=== PATIENT | male | born 1990 | race Caucasian/White ===

== ENCOUNTER 2024-10-30 15:16 | Inpatient (IN) | payer BC, SELFPAY ==
[2024-10-30] VITALS (8 sets, daily range): BP systolic 143–182; BP diastolic 96–112; PULSE 60–81; RESP 13–19; TEMP 36.4–36.7; O2SAT 95–99; BMI 22.8; BMI 21.8
--- NOTE | 2024-10-30 15:10 | ECG_ITS ---
APPROVED REPORT Exam: Resting ECG HR:63 bpm ECG Measurements Heart Rate 63 AXES ME 143 P 61 QRSd 110 QRS 32 QT 428 T 48 QTc 435 Conclusion Sinus rhythm Incomplete right bundle branch block Electronically signed by : LUIS ALFREDO CASEY, 10/30/2024 20:40:22
[2024-10-30] MEDS: ONDANSETRON 4MG/2ML VIAL 4 MG IV ×3 (15:30→21:49)
[2024-10-30] MEDS: KETOROLAC 30MG/ML VIAL 30 MG IV (15:31)
--- NOTE | 2024-10-30 15:31 | CT_ITS ---
PROCEDURE INFORMATION: Exam: CT Abdomen And Pelvis With Contrast Exam date and time: 10/30/2024 4:01 PM Age: 34 years old Clinical indication: Other: Luq abd pain / vomiting TECHNIQUE: Imaging protocol: Computed tomography of the abdomen and pelvis with contrast. Radiation optimization: All CT scans at this facility use at least one of these dose optimization techniques: automated exposure control; mA and/or kV adjustment per patient size (includes targeted exams where dose is matched to clinical indication); or iterative reconstruction. Contrast material: ISOVUE; Contrast volume: 75 ml; Contrast route: IV; COMPARISON: No relevant prior studies available. FINDINGS: Liver: Normal. No mass. Gallbladder and biliary ducts: Normal gallbladder Pancreas: There is diffuse peripancreatic inflammatory stranding and fluid, consistent with moderate acute pancreatitis. . Spleen: Normal. No splenomegaly. Adrenal glands: Normal. No mass. Kidneys and ureters: Normal. No hydronephrosis. Stomach and bowel: Secondary inflammation of the stomach and duodenum and colon by the pancreatitis.. Appendix: No evidence of appendicitis. Intraperitoneal space: Mild amount of free fluid in the abdomen and pelvis Vasculature: Unremarkable. No abdominal aortic aneurysm. Lymph nodes: Unremarkable. No enlarged lymph nodes. Urinary bladder: Unremarkable as visualized. Reproductive: Unremarkable as visualized. Bones/joints: Unremarkable. No acute fracture. Soft tissues: Unremarkable. IMPRESSION: 1. There is diffuse peripancreatic inflammatory stranding and fluid, consistent with moderate acute pancreatitis. . 2. Secondary inflammation of the stomach and duodenum and colon by the pancreatitis..
--- NOTE | 2024-10-30 15:31 | XR_ITS ---
PROCEDURE INFORMATION: Exam: XR Chest Exam date and time: 10/30/2024 4:07 PM Age: 34 years old Clinical indication: Pain; Other: Central cp TECHNIQUE: Imaging protocol: Radiologic exam of the chest. Views: 1 view. COMPARISON: CT ABDOMEN PELVIS W CON 10/30/2024 4:01 PM FINDINGS: Lungs: Unremarkable. No consolidation. Pleural spaces: Unremarkable. No pleural effusion. No pneumothorax. Heart/Mediastinum: Unremarkable. No cardiomegaly. Bones/joints: Unremarkable. IMPRESSION: No acute findings.
[2024-10-30 15:39] LABS: Basophils # 0.1 K/mm3 (0-0.2); Basophils % 0.6 % (0.1-2.0); Eosinophils # 0.4 K/mm3 (0.0-0.4); Eosinophils % 1.6 % (0.1-12.0); Hematocrit 45.8 % (42.0-52.0); Hemoglobin 15.6 g/dL (14.1-18.0); Lymphocytes # 3.8 K/mm3 (0.7-4.5); Lymphocytes % 16.7 % (10-50); Mean Corpuscular HGB Conc 34.1 g/dL (31.8-35.4); Mean Corpuscular Volume 91.1 fl (80-94); Mean Platelet Volume 9.4 fl (7.4-10.4); Monocytes # 1.2 K/mm3 (0.1-1.0); Monocytes % 5.2 % (1.7-9.3); Neutrophils # 17.2 K/mm3 (1.8-7.8); Neutrophils % 75.3 % (37.0-80.0); Platelet Count 278 K/mm3 (142-424); Red Blood Count 5.03 M/mm3 (4.60-6.20); Red Cell Distribution Width 12.1 % (11.5-17.5); White Blood Count 22.8 K/mm3 (4.8-10.8)
[2024-10-30 15:40] LABS: Albumin Level 5.3 g/dl (3.5-5.0); Chloride 103 mmol/L (98-107)
[2024-10-30 15:41] LABS: Potassium 3.6 mmoL/L (3.5-5.1); Sodium 138 mmol/L (136-145)
[2024-10-30] MEDS: 0.9 % SODIUM CHLORIDE 1000ML 1,000 ML 999 ML IV ×3 (15:42→17:09)
[2024-10-30] MEDS: HYDROMORPHONE 2MG/ML SYRINGE 1 MG IV (15:42)
[2024-10-30 15:43] LABS: Alanine Aminotransferase 43 U/L (12-78); Alkaline Phosphatase 66 U/L (38-126); Anion Gap 12.6 mEq/L (5-15); Aspartate Amino Transferase 59 U/L (17-59); Bilirubin,Total 1.1 mg/dl (0.2-1.3); Blood Urea Nitrogen 8 mg/dl (9-20); Carbon Dioxide 26 mmol/L (22.0-30.0); Creatinine Clearance Estimated 143 mL/min (50-200); Estimated Glomerular Filt Rate 129 ml/min (>60); GFR (African American) 156 ML/MIN (>60)
[2024-10-30 15:44] LABS: Albumin/Globulin Ratio 1.9 (1.1-1.8); Calcium 9.1 mg/dl (8.4-10.2); Globulin 2.8 g/dL (1.3-3.2); Glucose 191 mg/dl (74-100); Total Protein,Serum 8.1 g/dl (6.3-8.2)
--- NOTE | 2024-10-30 15:44 | HMH.EDGENADL ---
Discharge Plan Disposition Patient Disposition: Admitted Discharge ED Provider: Rajesh Mccoy General Adult HPI <Gricel Valente APRN - Last Filed: 10/30/24 19:53> General Chief complaint: Abdominal Pain Stated complaint: CP Time Seen by Provider: 10/30/24 15:21 Mode of Arrival: Ambulatory Source of Information: Patient Description of Symptoms (Recalled from ER Triage Doc. by RN): pt presents c/o abd pain x2h. pt entire abd (LUQ worse) tender to palpations, guarding and firm to palpation. History of Present Illness HPI narrative: Patient is a 34-year-old male no significant PMHx who presents to the ED for complaints of left upper quadrant abdominal pain that started suddenly, reports it is severe associated with vomiting. Patient states he has never experienced this before. Related Data Allergies Allergy/AdvReac Type Severity Reaction Status Date / Time No Known Allergies Allergy Verified 10/30/24 15:37 PFSH <Gricel Valente APRN - Last Filed: 10/30/24 19:53> PFSH Disclaimer: The information contained in this section may have been updated after the patient was seen, as this information can be updated by other users. Medical History (Updated 10/30/24 @ 18:43 by Neeraj Irwin MD) Murmur History of palpitations Anxiety Family History (Updated 10/30/24 @ 18:11 by Liya Mccormick RN) Other Family history of cancer Family history of myocardial infarction Family history of stroke Social History Smoking Status: Current every day smoker alcohol intake: current current occupational status: employed Travel in the last 8 weeks: None Have you lived/traveled outside [place] in past 30 days?: No Contact w/someone who lives/traveled outside US past 30 days?: No Exposure to someone with infectious disease in past 14 days?: No Do you have a fever (greater than 100.4 F or 38 C)?: No Have you tested positive for COVID-19: No Exposed to someone with COVID-19 in past 14 days?: No Do you have a sore throat?: No Do you have a cough?: No Do you have any weakness?: No Are you experiencing any nausea/vomitting?: Yes Do you have any diarrhea?: No Are you experiencing any unusual bleeding?: No Do you have any muscle aches/pain?: Yes Do you have any abdominal pain?: Yes Are you experiencing loss of taste or smell?: No <Gricel Valente APRN - Last Filed: 10/30/24 19:53> ROS Obtained: Yes Systems reviewed as appropriate & no additional complaints except as documented Physical Exam <Gricel Valente APRN - Last Filed: 10/30/24 19:53> General General appearance: alert and in no apparent distress Head Head exam: atraumatic and normocephalic Eye Eye exam: Present normal appearance and PERRL ENT ENT exam: Present normal exam Neck Neck exam: Present normal inspection Chest Chest inspection: Present normal inspection and symmetric chest wall rise; Absent tenderness Respiratory Respiratory exam: Present normal lung sounds bilaterally Cardiovascular Cardiovascular exam: Present regular rate Abdominal Exam Abdominal exam: Present soft, tenderness (LUQ LLQ abd ) and normal bowel sounds Extremities Exam Extremities exam: Present normal inspection and full ROM Back Exam Back exam: Present normal inspection and full ROM Neurological Exam Neurological exam: Present alert and oriented X3 Psychiatric Psychiatric exam: Present normal affect and normal mood Skin Skin exam: Present warm and dry Medical Decision Making <Gricel Valente APRN - Last Filed: 10/30/24 19:53> Medical Records Screening: Per USPSTF and CDC recommendations, given the prevalence of disease in our region, it is our hospital?s policy to screen for HIV and viral Hepatitis for all patients aged 18 and over and those with ongoing risk factors. Cameron Inquiry Pt receiving controlled substance: No Cameron was queried for this patient: No Vital Signs: 10/30/24 15:26 10/30/24 15:30 10/30/24 16:30 Temperature 97.8 F Temperature Source Oral Pulse Rate 64 66 Pulse Rate [Left] 60 Respiratory Rate 14 19 13 Blood Pressure 182/108 H 181/112 H Blood Pressure [Right Arm] 170/101 H Blood Pressure Mean [Right Arm] 124 Blood Pressure Source [Right Arm] Automatic Cuff Blood Pressure Position [Right Arm] Sitting 02 Sat by Pulse Oximetry 99 99 99 Oxygen Delivery Method Room Air Room Air Room Air 10/30/24 16:45 10/30/24 17:30 10/30/24 17:56 Temperature Temperature Source Pulse Rate 65 76 Pulse Rate [Left] Respiratory Rate 15 15 Blood Pressure 143/110 H 170/110 H Blood Pressure [Right Arm] Blood Pressure Mean [Right Arm] Blood Pressure Source [Right Arm] Blood Pressure Position [Right Arm] 02 Sat by Pulse Oximetry 97 98 Oxygen Delivery Method Room Air 10/30/24 18:02 10/30/24 18:11 Temperature 97.6 F 97.6 F Temperature Source Oral Pulse Rate 76 Pulse Rate [Left] 75 Respiratory Rate 13 13 Blood Pressure 143/97 H Blood Pressure [Right Arm] 143/97 H Blood Pressure Mean [Right Arm] 112 Blood Pressure Source [Right Arm] Automatic Cuff Blood Pressure Position [Right Arm] 02 Sat by Pulse Oximetry 97 Oxygen Delivery Method Room Air Room Air Lab Data Lab Results 10/30/24 15:20: WBC 22.8 H*, RBC 5.03, Hgb 15.6, Hct 45.8, MCV 91.1, MCH 31.0, MCHC 34.1, RDW 12.1, Plt Count 278, MPV 9.4, Neut % (Auto) 75.3, Lymph % (Auto) 16.7, [place] % (Auto) 5.2, Eos % (Auto) 1.6, Baso % (Auto) 0.6, Neut # (Auto) 17.2 H, Lymph # (Auto) 3.8, [place] # (Auto) 1.2 H, Eos # (Auto) 0.4, Baso # (Auto) 0.1, Total Counted 100, Neutrophils % (Manual) 81 H, Lymphocytes % (Manual) 13, Monocytes % (Manual) 4, Eosinophils % (Manual) 2, Platelet Estimate Normal, RBC Morphology Normal, Sodium 138, Potassium 3.6, Chloride 103, Carbon Dioxide 26, Anion Gap 12.6, BUN 8 L, Creatinine 0.70, Estimated Creat Clear 143, Estimated GFR 129, Est GFR ( Amer) 156, Glucose 191 H, Calcium 9.1, Total Bilirubin 1.1, AST 59, ALT 43, Alkaline Phosphatase 66, Troponin I < 0.01, Total Protein 8.1, Albumin 5.3 H, Globulin 2.8, Albumin/Globulin Ratio 1.9 H, Lipase 66103 H, HCV Ab SARAH w/Rflx PCR Qn Negative, HIV Ag/Ab Combo Qual Negative 10/30/24 15:20 10/30/24 15:20 Orders (Tests/Meds): ED MEDICATIONS Generic Name Dose Route Start Last Admin Trade Name Freq PRN Reason Stop Dose Admin Acetaminophen 650 mg 10/30/24 18:16 Acetaminophen 325mg Tab PO 11/29/24 18:15 Q4HP PRN Fever or Mild Pain (1-3) Enoxaparin Sodium 40 mg 10/31/24 09:00 Enoxaparin 40mg/0.4ml Syringe SUBCUT 11/30/24 08:59 DAILY JAYLEN Folic Acid 1 mg 10/31/24 09:00 Folic Acid 1mg Tablet PO 11/30/24 08:59 DAILY JAYLEN Sodium Chloride 1,000 mls @ 999 mls/hr 10/30/24 15:45 10/30/24 17:09 Sod Chlor 0.9% 1000ml Bag IV 11/29/24 15:44 999 mls/hr .Q1H1M JAYLEN Administration Lactated Ringer's 1,000 mls @ 125 mls/hr 10/30/24 18:30 10/30/24 18:28 Lactated Ringer's 1000 Ml Bag IV 11/29/24 18:29 125 mls/hr .Q8H JAYLEN Administration Ketorolac Tromethamine 30 mg 10/30/24 18:53 Ketorolac 30mg/Ml Vial IM 11/04/24 18:52 Q6HP PRN Moderate to Severe Pain (4-10) Lorazepam 2 mg 10/30/24 18:41 Lorazepam 2mg/Ml Vial IV 11/29/24 18:40 Q1HP PRN CIWA >16 Lorazepam 1 mg 10/30/24 18:41 Lorazepam 1mg Tablet PO 11/29/24 18:40 Q1HP PRN CIWA Score 8-15 Morphine Sulfate 2 mg 10/30/24 18:16 Morphine 2mg/Ml Syringe IV 11/29/24 18:15 Q4HP PRN Moderate Pain (4-6) Morphine Sulfate 4 mg 10/30/24 18:16 10/30/24 18:28 Morphine 4mg/Ml Syringe IV 11/29/24 18:15 4 mg Q4HP PRN Administration Severe Pain (7-10) Multivitamins 1 each 10/31/24 17:00 Multivitamin Tablet PO 11/30/24 16:59 1700 JAYLEN Promethazine HCl 25 mg 10/30/24 18:16 10/30/24 18:28 Promethazine Hcl 25mg/Ml 1ml Vial IV 11/29/24 18:15 25 mg Q6HP PRN Administration Nausea And Vomiting Sodium Chloride 10 ml 10/30/24 18:16 Sodium Chloride 0.9% 10ml Flush Syringe IV 11/29/24 18:15 NEEDED PRN Maintain IV Site Sodium Chloride 25 ml 10/30/24 18:16 10/30/24 18:30 Sodium Chloride 0.9% 25ml Bag IV 11/29/24 18:15 25 ml NEEDED PRN Administration for Use with IV Promethazine Sodium Chloride 10 ml 10/30/24 18:41 Sodium Chloride 0.9% 10ml Vial IV 11/29/24 18:40 NEEDED PRN to Dilute Lorazepam inj Thiamine HCl 100 mg 10/31/24 09:00 Thiamine 100mg Tablet PO 11/02/24 09:01 DAILY JAYLEN Discontinued Medications Generic Name Dose Route Start Last Admin Trade Name Freq PRN Reason Stop Dose Admin Hydromorphone HCl 1 mg 10/30/24 15:32 10/30/24 15:42 Hydromorphone 2mg/Ml Syringe IV 10/30/24 15:33 1 mg ONCE ONE Administration Iopamidol 75 ml 10/30/24 16:05 10/30/24 16:05 Iopamidol-370 (76%);100ml Bottle IV 10/30/24 16:06 75 ml ONCE ONE Administration Ketorolac Tromethamine 30 mg 10/30/24 15:29 10/30/24 15:31 Ketorolac 30mg/Ml Vial IV 10/30/24 15:30 30 mg ONCE ONE Administration Ondansetron HCl 4 mg 10/30/24 15:29 10/30/24 15:30 Ondansetron 4mg/2ml Vial IV 10/30/24 15:30 4 mg ONCE ONE Administration Ondansetron HCl 4 mg 10/30/24 17:26 10/30/24 17:53 Ondansetron 4mg/2ml Vial IV 10/30/24 17:27 4 mg ONCE ONE Administration Sodium Chloride 10 ml 10/30/24 16:05 10/30/24 16:05 Sodium Chloride 0.9% 10ml Syr (Rad Only) IV 10/30/24 16:06 10 ml ONCE ONE Administration ORDERS Category Date Time Status CT abdomen pelvis w con Stat Cat Scan 10/30/24 15:31 Completed CXR --portable [XR chest portable] Stat Exams 10/30/24 15:31 Completed CBC w/Auto Diff [Complete Blood Count Auto Diff] Stat Lab 10/30/24 15:20 Completed CMP [Comprehensive Metabolic Panel] Stat Lab 10/30/24 15:20 Completed HIV Combo Stat Lab 10/30/24 15:20 Completed Hepatitis C Ab Qual. W/ RFX Stat Lab 10/30/24 15:20 Completed Lipase Stat Lab 10/30/24 15:20 Completed Trop I [Troponin I] Stat Lab 10/30/24 15:20 Completed Troponin I Q3H Lab 10/30/24 19:07 Completed Troponin I Q3H Lab 10/30/24 21:45 Ordered Medical Decision Narrative: In summary, patient is a 34-year-old male no significant PMHx who presents to the ED for complaints of left upper quadrant abdominal pain that started suddenly, reports it is severe associated with vomiting. Patient states he has never experienced this before. He states that he smokes cigarettes, vapes, drinks at least 4 shots of bourbon each night. Has not been diagnosed with pancreatitis in the past. Denies fever, chills, body aches, headache, visual disturbances, posterior neck pain, chest pain, shortness of breath, dysuria, diarrhea. Upon initial evaluation in the ED patient is alert, oriented and cooperative. He is actively vomiting, he has left upper quadrant and left lower quadrant abdominal tenderness. Discussed with patient that we will obtain labs and CT scan of abdomen and pelvis. Patient symptomatically managed with IV fluids, Zofran, Toradol, Dilaudid. Labs reviewed. CBC remarkable for leukocytosis, WBC 22.8. Stable H&H. CMP unremarkable. Lipase 17113. Final read of the chest x-ray unremarkable for any acute findings. CT of the abdomen pelvis remarkable for diffuse peripancreatic inflammatory stranding and fluid consistent with a moderate acute pancreatitis, secondary inflammation of the stomach and duodenum. Discussed with patient that he will need admission for pancreatitis and inability to PO. Patient agreeable to admission at this time. I talked to him about his alcohol use and possible detox. Patient is agreeable to stay. <Rajesh Mccoy MD - Last Filed: 10/30/24 20:36> Vital Signs: 10/30/24 15:26 10/30/24 15:30 10/30/24 16:30 Temperature 97.8 F Temperature Source Oral Pulse Rate 64 66 Pulse Rate [Left] 60 Respiratory Rate 14 19 13 Blood Pressure 182/108 H 181/112 H Blood Pressure [Right Arm] 170/101 H Blood Pressure Mean [Right Arm] 124 Blood Pressure Source [Right Arm] Automatic Cuff Blood Pressure Position [Right Arm] Sitting 02 Sat by Pulse Oximetry 99 99 99 Oxygen Delivery Method Room Air Room Air Room Air 10/30/24 16:45 10/30/24 17:30 10/30/24 17:56 Temperature Temperature Source Pulse Rate 65 76 Pulse Rate [Left] Respiratory Rate 15 15 Blood Pressure 143/110 H 170/110 H Blood Pressure [Right Arm] Blood Pressure Mean [Right Arm] Blood Pressure Source [Right Arm] Blood Pressure Position [Right Arm] 02 Sat by Pulse Oximetry 97 98 Oxygen Delivery Method Room Air 10/30/24 18:02 10/30/24 18:11 Temperature 97.6 F 97.6 F Temperature Source Oral Pulse Rate 76 Pulse Rate [Left] 75 Respiratory Rate 13 13 Blood Pressure 143/97 H Blood Pressure [Right Arm] 143/97 H Blood Pressure Mean [Right Arm] 112 Blood Pressure Source [Right Arm] Automatic Cuff Blood Pressure Position [Right Arm] 02 Sat by Pulse Oximetry 97 Oxygen Delivery Method Room Air Room Air Lab Data Lab Results 10/30/24 15:20: WBC 22.8 H*, RBC 5.03, Hgb 15.6, Hct 45.8, MCV 91.1, MCH 31.0, MCHC 34.1, RDW 12.1, Plt Count 278, MPV 9.4, Neut % (Auto) 75.3, Lymph % (Auto) 16.7, [place] % (Auto) 5.2, Eos % (Auto) 1.6, Baso % (Auto) 0.6, Neut # (Auto) 17.2 H, Lymph # (Auto) 3.8, [place] # (Auto) 1.2 H, Eos # (Auto) 0.4, Baso # (Auto) 0.1, Total Counted 100, Neutrophils % (Manual) 81 H, Lymphocytes % (Manual) 13, Monocytes % (Manual) 4, Eosinophils % (Manual) 2, Platelet Estimate Normal, RBC Morphology Normal, Sodium 138, Potassium 3.6, Chloride 103, Carbon Dioxide 26, Anion Gap 12.6, BUN 8 L, Creatinine 0.70, Estimated Creat Clear 143, Estimated GFR 129, Est GFR ( Amer) 156, Glucose 191 H, Calcium 9.1, Total Bilirubin 1.1, AST 59, ALT 43, Alkaline Phosphatase 66, Troponin I < 0.01, Total Protein 8.1, Albumin 5.3 H, Globulin 2.8, Albumin/Globulin Ratio 1.9 H, Lipase 79750 H, HCV Ab SARAH w/Rflx PCR Qn Negative, HIV Ag/Ab Combo Qual Negative Orders (Tests/Meds): ED MEDICATIONS Generic Name Dose Route Start Last Admin Trade Name Freq PRN Reason Stop Dose Admin Acetaminophen 650 mg 10/30/24 18:16 Acetaminophen 325mg Tab PO 11/29/24 18:15 Q4HP PRN Fever or Mild Pain (1-3) Enoxaparin Sodium 40 mg 10/31/24 09:00 Enoxaparin 40mg/0.4ml Syringe SUBCUT 11/30/24 08:59 DAILY JAYLEN Folic Acid 1 mg 10/31/24 09:00 Folic Acid 1mg Tablet PO 11/30/24 08:59 DAILY JAYLEN Sodium Chloride 1,000 mls @ 999 mls/hr 10/30/24 15:45 10/30/24 17:09 Sod Chlor 0.9% 1000ml Bag IV 11/29/24 15:44 999 mls/hr .Q1H1M JAYLEN Administration Lactated Ringer's 1,000 mls @ 125 mls/hr 10/30/24 18:30 10/30/24 18:28 Lactated Ringer's 1000 Ml Bag IV 11/29/24 18:29 125 mls/hr .Q8H JAYLEN Administration Ketorolac Tromethamine 30 mg 10/30/24 18:53 Ketorolac 30mg/Ml Vial IM 11/04/24 18:52 Q6HP PRN Moderate to Severe Pain (4-10) Lorazepam 2 mg 10/30/24 18:41 Lorazepam 2mg/Ml Vial IV 11/29/24 18:40 Q1HP PRN CIWA >16 Lorazepam 1 mg 10/30/24 18:41 Lorazepam 1mg Tablet PO 11/29/24 18:40 Q1HP PRN CIWA Score 8-15 Morphine Sulfate 2 mg 10/30/24 18:16 Morphine 2mg/Ml Syringe IV 11/29/24 18:15 Q4HP PRN Moderate Pain (4-6) Morphine Sulfate 4 mg 10/30/24 18:16 10/30/24 18:28 Morphine 4mg/Ml Syringe IV 11/29/24 18:15 4 mg Q4HP PRN Administration Severe Pain (7-10) Multivitamins 1 each 10/31/24 17:00 Multivitamin Tablet PO 11/30/24 16:59 1700 [facility] Promethazine HCl 25 mg 10/30/24 18:16 10/30/24 18:28 Promethazine Hcl 25mg/Ml 1ml Vial IV 11/29/24 18:15 25 mg Q6HP PRN Administration Nausea And Vomiting Sodium Chloride 10 ml 10/30/24 18:16 Sodium Chloride 0.9% 10ml Flush Syringe IV 11/29/24 18:15 NEEDED PRN Maintain IV Site Sodium Chloride 25 ml 10/30/24 18:16 10/30/24 18:30 Sodium Chloride 0.9% 25ml Bag IV 11/29/24 18:15 25 ml NEEDED PRN Administration for Use with IV Promethazine Sodium Chloride 10 ml 10/30/24 18:41 Sodium Chloride 0.9% 10ml Vial IV 11/29/24 18:40 NEEDED PRN to Dilute Lorazepam inj Thiamine HCl 100 mg 10/31/24 09:00 Thiamine 100mg Tablet PO 11/02/24 09:01 DAILY JAYLEN Discontinued Medications Generic Name Dose Route Start Last Admin Trade Name Freq PRN Reason Stop Dose Admin Hydromorphone HCl 1 mg 10/30/24 15:32 10/30/24 15:42 Hydromorphone 2mg/Ml Syringe IV 10/30/24 15:33 1 mg ONCE ONE Administration Iopamidol 75 ml 10/30/24 16:05 10/30/24 16:05 Iopamidol-370 (76%);100ml Bottle IV 10/30/24 16:06 75 ml ONCE ONE Administration Ketorolac Tromethamine 30 mg 10/30/24 15:29 10/30/24 15:31 Ketorolac 30mg/Ml Vial IV 10/30/24 15:30 30 mg ONCE ONE Administration Ondansetron HCl 4 mg 10/30/24 15:29 10/30/24 15:30 Ondansetron 4mg/2ml Vial IV 10/30/24 15:30 4 mg ONCE ONE Administration Ondansetron HCl 4 mg 10/30/24 17:26 10/30/24 17:53 Ondansetron 4mg/2ml Vial IV 10/30/24 17:27 4 mg ONCE ONE Administration Sodium Chloride 10 ml 10/30/24 16:05 10/30/24 16:05 Sodium Chloride 0.9% 10ml Syr (Rad Only) IV 10/30/24 16:06 10 ml ONCE ONE Administration ORDERS Category Date Time Status CT abdomen pelvis w con Stat Cat Scan 10/30/24 15:31 Completed CXR --portable [XR chest portable] Stat Exams 10/30/24 15:31 Completed CBC w/Auto Diff [Complete Blood Count Auto Diff] Stat Lab 10/30/24 15:20 Completed CMP [Comprehensive Metabolic Panel] Stat Lab 10/30/24 15:20 Completed HIV Combo Stat Lab 10/30/24 15:20 Completed Hepatitis C Ab Qual. W/ RFX Stat Lab 10/30/24 15:20 Completed Lipase Stat Lab 10/30/24 15:20 Completed Trop I [Troponin I] Stat Lab 10/30/24 15:20 Completed Troponin I Q3H Lab 10/30/24 19:07 Completed Troponin I Q3H Lab 10/30/24 21:45 Ordered Medical Decision Narrative: In summary, patient is a 34-year-old male no significant PMHx who presents to the ED for complaints of left upper quadrant abdominal pain that started suddenly, reports it is severe associated with vomiting. Patient states he has never experienced this before. He states that he smokes cigarettes, vapes, drinks at least 4 shots of bourbon each night. Has not been diagnosed with pancreatitis in the past. Denies fever, chills, body aches, headache, visual disturbances, posterior neck pain, chest pain, shortness of breath, dysuria, diarrhea. Upon initial evaluation in the ED patient is alert, oriented and cooperative. He is actively vomiting, he has left upper quadrant and left lower quadrant abdominal tenderness. Discussed with patient that we will obtain labs and CT scan of abdomen and pelvis. Patient symptomatically managed with IV fluids, Zofran, Toradol, Dilaudid. Labs reviewed. CBC remarkable for leukocytosis, WBC 22.8. Stable H&H. CMP unremarkable. Lipase 39444. Final read of the chest x-ray unremarkable for any acute findings. CT of the abdomen pelvis remarkable for diffuse peripancreatic inflammatory stranding and fluid consistent with a moderate acute pancreatitis, secondary inflammation of the stomach and duodenum. Discussed with patient that he will need admission for pancreatitis and inability to PO. Patient agreeable to admission at this time. I talked to him about his alcohol use and possible detox. Patient is agreeable to stay. I was consulted by the TAVARES, and we discussed the complexity of the problems being addressed. I approved the treatment and management plan for this patient's care in the Emergency Department, thus performing a substantive portion of the medical decision making. Rajesh Mccoy MD Critical Care <Gricel Valente APRN - Last Filed: 10/30/24 19:53> Critical Care Time Critical Care Time: No
[2024-10-30 15:54] LABS: MANUAL DIFFERENTIAL MANUAL DIFFERENTIAL (MANUAL DIFF)
[2024-10-30 15:57] LABS: Troponin I < 0.01 ng/ml (0.00-0.034)
[2024-10-30] MEDS: SODIUM CHLORIDE 0.9% 10ML SYR (RAD ONLY) 10 ML IV (16:05)
[2024-10-30] MEDS: IOPAMIDOL-370 (76%);100ML BOTTLE 75 ML IV (16:05)
--- NOTE | 2024-10-30 16:12 | PC.NURSE ---
PT ARRIVED BACK TO ROOM FROM CT SCAN
[2024-10-30 16:53] LABS: HIV Combo NEGATIVE (Negative)
[2024-10-30 17:01] LABS: Hepatitis C Ab Qual. W/ RFX NEGATIVE (Negative)
[2024-10-30 17:06] LABS: Lipase 11149 U/L (23-300)
[2024-10-30 17:16] LABS: Eosinophils % 2 % (0-3); Lymphocytes % 13 % (10-50); Monocytes % 4 % (2-9); Neutrophils % 81 % (42-76); Platelet Estimate Normal; Total Cells Counted 100
[2024-10-30 17:23] LABS: RBC Morphology Normal
--- NOTE | 2024-10-30 17:42 | PC.NURSE ---
report called to alfred dubon on second floor
[2024-10-30] MEDS: PROMETHAZINE HCL 25MG/ML 1ML VIAL 25 MG IV (18:28)
[2024-10-30] MEDS: MORPHINE 4MG/ML SYRINGE 4 MG IV (18:28)
[2024-10-30] MEDS: LACTATED RINGERS 1000ML 1,000 ML 125 ML IV (18:28)
[2024-10-30] MEDS: SODIUM CHLORIDE 0.9% 25ML BAG 25 ML IV (18:30)
--- NOTE | 2024-10-30 18:36 | P.HP_ITS ---
History of Present Illness *Admission Date: 10/30/24 *Reason for visit:: Abdominal pain *History of present illness: Pantera Stack is a 34-year-old male with a medical history significant for anxiety/depression who presents with nausea/vomiting, epigastric pain. Patient states symptoms started about 2 hours prior to arrival to the ED. Endorses drinking 4 shots of bourbon every night for quite some time. No fever/chills, chest pain, shortness of breath.Workup in the ED significant for WBC 22.8, lipase 11,149, CT abdomen/pelvis shows diffuse perinephric inflammation. Case discussed with ED provider and decision was made to admit patient for acute pancreatitis. [facility] Disclaimer: The information contained in this section may have been updated after the patient was seen, as this information can be updated by other users. Medical History (Updated 10/30/24 @ 18:43 by Neeraj Irwin MD) Murmur History of palpitations Anxiety Family History (Updated 10/30/24 @ 18:11 by Liya Mccormick RN) Other Family history of cancer Family history of myocardial infarction Family history of stroke Social History (Updated 10/30/24 @ 18:12 by Liya Mccormick RN) Smoking Status: Current every day smoker alcohol intake: current current occupational status: employed Travel in the last 8 weeks: None Other Medical History Have you received the Flu Vaccine for this season: No Have you received the Pneumonia Vaccine: No Meds Home Medications and Allergies New Prescriptions to Start Prescriptions: Allergies Allergy/AdvReac Type Severity Reaction Status Date / Time No Known Allergies Allergy Verified 10/30/24 15:37 Exam Data for Last 24 hours Vital signs and Labs for Last 24 Hours: Temp Pulse Resp BP Pulse Ox O2 Del Method 97.6 F 76 13 143/97 H 97 Room Air 10/30/24 18:11 10/30/24 18:11 10/30/24 18:11 10/30/24 18:11 10/30/24 18:02 10/30/24 18:11 Laboratory Results - last 24 hr 10/30/24 15:20: WBC 22.8 H*, RBC 5.03, Hgb 15.6, Hct 45.8, MCV 91.1, MCH 31.0, MCHC 34.1, RDW 12.1, Plt Count 278, MPV 9.4, Neut % (Auto) 75.3, Lymph % (Auto) 16.7, [place] % (Auto) 5.2, Eos % (Auto) 1.6, Baso % (Auto) 0.6, Neut # (Auto) 17.2 H, Lymph # (Auto) 3.8, [place] # (Auto) 1.2 H, Eos # (Auto) 0.4, Baso # (Auto) 0.1, Total Counted 100, Neutrophils % (Manual) 81 H, Lymphocytes % (Manual) 13, Monocytes % (Manual) 4, Eosinophils % (Manual) 2, Platelet Estimate Normal, RBC Morphology Normal, Sodium 138, Potassium 3.6, Chloride 103, Carbon Dioxide 26, Anion Gap 12.6, BUN 8 L, Creatinine 0.70, Estimated Creat Clear 143, Estimated GFR 129, Est GFR ( Amer) 156, Glucose 191 H, Calcium 9.1, Total Bilirubin 1.1, AST 59, ALT 43, Alkaline Phosphatase 66, Troponin I < 0.01, Total Protein 8.1, Albumin 5.3 H, Globulin 2.8, Albumin/Globulin Ratio 1.9 H, Lipase 29073 H, HCV Ab SARAH w/Rflx PCR Qn Negative, HIV Ag/Ab Combo Qual Negative I & O for Last 24 hours: Intake & Output 10/27/24 10/28/24 10/29/24 10/30/24 23:59 23:59 23:59 23:59 Weight 65.062 kg Constitutional Constitutional: no acute distress *Routine HEENT Exam Head: Present normocephalic Eye: Present EOMI and PERRL ENT: Present mucous membranes moist *Routine Neck Exam Neck: Present supple; Absent lymphadenopathy *Routine Respiratory Exam Respiratory: Present CTA bilaterally *Routine Cardiovascular Exam Cardiovascular: Present RRR *Routine Abdominal Exam Abdominal: Present soft, normoactive bowel sounds and tenderness Comments: Epigastrium is to palpation without peritoneal signs. *Routine Rectal Exam Rectal:: deferred *Routine Genitalia Exam Genitalia:: deferred *Routine Extremities Exam Extremities: Absent cyanosis, clubbing or edema *Routine Skin Exam Skin: Present warm; Absent rash *Routine Neurological Exam Neurological: Present alert and oriented X3 Assessment and Plan *Assessment and plan (1) Acute pancreatitis: Status: Acute Category: Medical Code(s): K85.90 - Acute pancreatitis without necrosis or infection, unspecified Plan Pantera Stack is a 34-year-old male with a medical history significant for anxiety/depression who presents with nausea/vomiting, epigastric pain. Patient states symptoms started about 2 hours prior to arrival to the ED. Endorses drinking 4 shots of bourbon every night for quite some time. No fever/chills, chest pain, shortness of breath. Workup in the ED significant for WBC 22.8, lipase 11,149, CT abdomen/pelvis shows diffuse perinephric inflammation. Case discussed with ED provider and decision was made to admit patient for acute pancreatitis. #Acute alcoholic pancreatitis ? Endorses to drinking 4 shots of bourbon a night. ? Follow-up on LDH, calculate Swanton's criteria. Follow-up triglycerides. Calcium normal. ? WBC 22.8 significant significant inflammation. No necrosis, pseudocyst, abscess noted on CT abdomen. ? IV LR at 125 mg/h. ? Tylenol, Toradol, morphine as needed. ? Clear liquid diet for now, advance as tolerated. #Alcohol use disorder ? Uses it to help sleep at night. ? CIWA protocol, Ativan as needed. ? Multivitamins. Full code DVT prophylaxis: Lovenox 40 mg
[2024-10-30 19:30] LABS: Lactate Dehydrogenase 210 U/L (313-618)
[2024-10-30 19:44] LABS: Troponin I < 0.01 ng/ml (0.00-0.034)
[2024-10-30] MEDS: KETOROLAC 30MG/ML VIAL 30 MG IM (21:50)
[2024-10-30 22:18] LABS: Troponin I < 0.01 ng/ml (0.00-0.034)
[2024-10-31] MEDS: PROMETHAZINE HCL 25MG/ML 1ML VIAL 25 MG IV (01:05)
[2024-10-31] MEDS: MORPHINE 4MG/ML SYRINGE 4 MG IV (01:06)
[2024-10-31] MEDS: LACTATED RINGERS 1000ML 1,000 ML 125 ML IV ×3 (02:30→21:41)
[2024-10-31 04:00] VITALS: BP 151/92; PULSE 79; RESP 18; TEMP 36.6; O2SAT 98; BMI 22.9
--- NOTE | 2024-10-31 04:18 | PC.NURSE ---
v/s, ox4. Pt c/o of pain, treated per oct. Pt c/o nausea and vomiting, treated per MAR. Provider notified as one antiemetic medication didn't work. Provider put additional medication orders in for nausea. Plan of care ongoing.
[2024-10-31] MEDS: ONDANSETRON 4MG/2ML VIAL 4 MG IV ×3 (05:04→18:28)
[2024-10-31] MEDS: KETOROLAC 30MG/ML VIAL 30 MG IM ×3 (05:04→18:28)
[2024-10-31 07:37] LABS: Basophils # 0.1 K/mm3 (0-0.2); Basophils % 0.4 % (0.1-2.0); Eosinophils % 0.2 % (0.1-12.0); Hematocrit 43.9 % (42.0-52.0); Hemoglobin 14.9 g/dL (14.1-18.0); Lymphocytes % 5.2 % (10-50); Mean Corpuscular HGB Conc 33.9 g/dL (31.8-35.4); Mean Corpuscular Hemoglobin 30.7 pg (27.0-31.2); Mean Corpuscular Volume 90.3 fl (80-94); Mean Platelet Volume 9.8 fl (7.4-10.4); Monocytes # 1.1 K/mm3 (0.1-1.0); Monocytes % 6.1 % (1.7-9.3); Neutrophils # 16.3 K/mm3 (1.8-7.8); Neutrophils % 87.8 % (37.0-80.0); Platelet Count 192 K/mm3 (142-424); Red Blood Count 4.86 M/mm3 (4.60-6.20); White Blood Count 18.5 K/mm3 (4.8-10.8)
[2024-10-31 07:48] LABS: MANUAL DIFFERENTIAL MANUAL DIFFERENTIAL (MANUAL DIFF)
[2024-10-31 07:57] LABS: Chloride 103 mmol/L (98-107); Potassium 3.4 mmoL/L (3.5-5.1); Sodium 135 mmol/L (136-145)
[2024-10-31 07:59] LABS: Blood Urea Nitrogen 7 mg/dl (9-20); Creatinine Clearance Estimated 169 mL/min (50-200); Estimated Glomerular Filt Rate 154 ml/min (>60); GFR (African American) 187 ML/MIN (>60)
[2024-10-31 08:00] VITALS: BP 154/97; PULSE 88; RESP 17; TEMP 36.9; O2SAT 97
[2024-10-31 08:00] LABS: Alanine Aminotransferase 27 U/L (12-78); Albumin/Globulin Ratio 1.9 (1.1-1.8); Alkaline Phosphatase 79 U/L (38-126); Anion Gap 9.4 mEq/L (5-15); Aspartate Amino Transferase 42 U/L (17-59); Bilirubin,Total 1.4 mg/dl (0.2-1.3); Calcium 8.6 mg/dl (8.4-10.2); Carbon Dioxide 26 mmol/L (22.0-30.0); Cholesterol 178 mg/dl (140-200); Globulin 2.1 g/dL (1.3-3.2); Glucose 116 mg/dl (74-100); Magnesium 1.3 mg/dl (1.6-2.3); Total Protein,Serum 6.1 g/dl (6.3-8.2); Triglycerides 95 mg/dl (30-150); VLDL Cholesterol 19 mg/dL (0-40)
[2024-10-31 08:01] LABS: Chol/HDL Ratio 2.9 (1-3.5); HDL Cholesterol 61 mg/dl (40-60)
[2024-10-31 08:11] LABS: Direct LDL Cholesterol 94.13 mg/dL (100-129)
--- NOTE | 2024-10-31 09:11 | HMH.PHAINT1 ---
Pharmacy Intervention Comments: MEDICATION RECONCILIATION COMPLETE. PER NURSE SAGE CORREA PATIENT STATES HE DOES NOT TAKE ANY MEDICATIONS AT HOME.
[2024-10-31 09:38] LABS: Lymphocytes % 6 % (10-50); Monocytes % 7 % (2-9); Neutrophils % 87 % (42-76); Platelet Estimate Normal; RBC Morphology Normal; Total Cells Counted 100
[2024-10-31] MEDS: THIAMINE 100MG TABLET 100 MG PO (10:31)
[2024-10-31] MEDS: FOLIC ACID 1MG TABLET 1 MG PO (10:31)
[2024-10-31] MEDS: ENOXAPARIN 40MG/0.4ML SYRINGE 40 MG SUBCUT (10:32)
[2024-10-31 16:00] VITALS: BP 161/95; PULSE 77; RESP 17; TEMP 36.9; O2SAT 97
--- NOTE | 2024-10-31 17:59 | P.PN_ITS ---
Subjective *Date: 10/31/24 *Time: 17:59 Interval history: Patient still having moderate epigastric pain, difficulty tolerating food. Full liquid diet, continue IV fluids. Exam Data for Last 24 hours Vital signs and Labs for Last 24 Hours: Temp Pulse Resp BP Pulse Ox O2 Del Method 98.4 F 77 17 161/95 H 97 Room Air 10/31/24 16:00 10/31/24 16:00 10/31/24 16:00 10/31/24 16:00 10/31/24 16:00 10/31/24 16:59 Laboratory Results - last 24 hr 10/30/24 19:07: Lactate Dehydrogenase 210 L, Troponin I < 0.01 10/30/24 21:42: Troponin I < 0.01 10/31/24 06:50: WBC 18.5 H, RBC 4.86, Hgb 14.9, Hct 43.9, MCV 90.3, MCH 30.7, MCHC 33.9, RDW 12.0, Plt Count 192 D, MPV 9.8, Neut % (Auto) 87.8 H, Lymph % (Auto) 5.2 L, [place] % (Auto) 6.1, Eos % (Auto) 0.2, Baso % (Auto) 0.4, Neut # (Auto) 16.3 H, Lymph # (Auto) 1.0, [place] # (Auto) 1.1 H, Eos # (Auto) 0.0, Baso # (Auto) 0.1, Total Counted 100, Neutrophils % (Manual) 87 H, Lymphocytes % (Manual) 6 L, Monocytes % (Manual) 7, Platelet Estimate Normal, RBC Morphology Normal, Sodium 135 L, Potassium 3.4 L, Chloride 103, Carbon Dioxide 26, Anion Gap 9.4, BUN 7 L, Creatinine 0.60 L, Estimated Creat Clear 169, Estimated GFR 154, Est GFR ( Amer) 187, Glucose 116 H D, Calcium 8.6, Magnesium 1.3 L, Total Bilirubin 1.4 H, AST 42 D, ALT 27 D, Alkaline Phosphatase 79, Total Protein 6.1 L, Albumin 4.0 D, Globulin 2.1, Albumin/Globulin Ratio 1.9 H, Triglycerides 95, Cholesterol 178, LDL Cholesterol Direct 94.13 L, VLDL Cholesterol 19, HDL Cholesterol 61 H, Cholesterol/HDL Ratio 2.9 I & O for Last 24 hours: Intake & Output 10/28/24 10/29/24 10/30/24 10/31/24 23:59 23:59 23:59 23:59 Intake Total 328 / 328 Output Total 0 / 0 0 / 0 Balance 0 / 100 328 / 328 Weight 65.062 kg 68.765 kg Constitutional Constitutional: no acute distress *Routine HEENT Exam Head: Present normocephalic Eye: Present EOMI and PERRL ENT: Present mucous membranes moist *Routine Neck Exam Neck: Present supple; Absent lymphadenopathy *Routine Respiratory Exam Respiratory: Present CTA bilaterally *Routine Cardiovascular Exam Cardiovascular: Present RRR *Routine Abdominal Exam Abdominal: Present soft, normoactive bowel sounds and tenderness *Routine Extremities Exam Extremities: Absent cyanosis, clubbing or edema *Routine Skin Exam Skin: Present warm; Absent rash *Routine Neurological Exam Neurological: Present alert and oriented X3 Assessment and Plan *Assessment and plan (1) Acute pancreatitis: Status: Acute Category: Medical Code(s): K85.90 - Acute pancreatitis without necrosis or infection, unspecified Plan Pantera Stack is a 34-year-old male with a medical history significant for anxiety/depression who presents with nausea/vomiting, epigastric pain. Patient states symptoms started about 2 hours prior to arrival to the ED. Endorses drinking 4 shots of bourbon every night for quite some time. No fever/chills, chest pain, shortness of breath. Workup in the ED significant for WBC 22.8, lipase 11,149, CT abdomen/pelvis shows diffuse perinephric inflammation. Case discussed with ED provider and decision was made to admit patient for acute pancreatitis. #Acute alcoholic pancreatitis ? Endorses to drinking 4 shots of bourbon a night. ? Triglycerides, calcium normal. ? WBC improved to 18.5 likely from inflammation. No necrosis, pseudocyst, abscess noted on CT abdomen. ? IV LR at 125 mg/h. ? Tylenol, Toradol, morphine as needed. ? Advanced to full liquid diet as patient still having difficulty tolerating food. #Alcohol use disorder ? Uses it to help sleep at night. ? CIWA protocol, Ativan as needed. ? Multivitamins. Full code DVT prophylaxis: Lovenox 40 mg
--- NOTE | 2024-10-31 18:01 | XR_ITS ---
PROCEDURE INFORMATION: Exam: XR Abdomen Exam date and time: 10/31/2024 6:29 PM Age: 34 years old Clinical indication: Abdominal pain; Generalized; Additional info: Hypoactive bowel sounds TECHNIQUE: Imaging protocol: Radiologic exam of the abdomen. Views: Frontal supine view of the abdomen. 1 View. COMPARISON: CT ABDOMEN PELVIS W CON 10/30/2024 4:01 PM FINDINGS: Lungs: Lung bases are clear. Gastrointestinal tract: Nonobstructive bowel gas pattern. Mild thumbprinting and wall thickening/interloop fluid to several small bowel loops in the left hemiabdomen. Intraperitoneal space: There is no free intraperitoneal air. No abnormal intraperitoneal calcifications. Bones/joints: No acute skeletal abnormality or aggressive osseous lesion. IMPRESSION: Mild thumbprinting and wall thickening/interloop fluid to several small bowel loops in the left hemiabdomen. In keeping with a known enteritis.
[2024-10-31] MEDS: MULTIVITAMIN TABLET 1 EACH PO (18:28)
--- NOTE | 2024-10-31 18:42 | PC.NURSE ---
PT IS RESTING IN BED. ALERT AND ORIENTED X4. MEDICATED PER MAR FOR DISCOMFORT. ABDOMINAL TENDERNESS NOTED . PT STATES THE TORADOL AND ZOFRAN HAS BEEN MANAGING HIS PAIN BETTER. TOLERATED A FEW BITES OF ICE CREAM AND SIPS OF LIQUIDS THIS SHIFT. AMBULATED TO THE BATHROOM. WILL CONTINUE TO MONITOR.
[2024-10-31 19:44] VITALS: BP 158/94; PULSE 86; RESP 22; TEMP 37.5; O2SAT 97
[2024-10-31] MEDS: KCl 10mEq/100ml 100 ML 100 MEQ IV ×4 (20:51→23:39)
[2024-10-31] MEDS: MAGNESIUM SULFATE IN WATER 2 GM/50 ML PIGGYBACK IV ×3 (20:51→22:39)
[2024-11-01] VITALS: BP 156/96; PULSE 82; RESP 16; TEMP 37.3; O2SAT 97
[2024-11-01] MEDS: ONDANSETRON 4MG/2ML VIAL 4 MG IV ×2 (00:32→06:34)
[2024-11-01] MEDS: KETOROLAC 30MG/ML VIAL 30 MG IM ×2 (00:32→06:34)
[2024-11-01] MEDS: KCl 10mEq/100ml 100 ML 100 MEQ IV ×2 (01:16→02:16)
[2024-11-01 02:15] VITALS: PULSE 90
[2024-11-01] MEDS: LACTATED RINGERS 1000ML 1,000 ML 125 ML IV ×4 (02:30→23:22)
[2024-11-01 04:00] VITALS: BMI 23.6
--- NOTE | 2024-11-01 05:40 | PC.NURSE ---
V/s, ox4. Pt has been able to rest well during shift. Pt states the only thing helping him is the zofran and toradol combo. Morphine and phenegran have been d/c'd. No acute events to report. Plan of care ongoing.
[2024-11-01 06:58] LABS: Basophils # 0.1 K/mm3 (0-0.2); Basophils % 0.5 % (0.1-2.0); Eosinophils # 0.7 K/mm3 (0.0-0.4); Eosinophils % 3.8 % (0.1-12.0); Hematocrit 38.9 % (42.0-52.0); Lymphocytes # 1.1 K/mm3 (0.7-4.5); Lymphocytes % 6.2 % (10-50); Mean Corpuscular HGB Conc 33.7 g/dL (31.8-35.4); Mean Corpuscular Hemoglobin 30.8 pg (27.0-31.2); Mean Corpuscular Volume 91.3 fl (80-94); Mean Platelet Volume 9.9 fl (7.4-10.4); Monocytes # 1.1 K/mm3 (0.1-1.0); Monocytes % 6.2 % (1.7-9.3); Neutrophils # 14.1 K/mm3 (1.8-7.8); Neutrophils % 82.9 % (37.0-80.0); Platelet Count 149 K/mm3 (142-424); Red Blood Count 4.26 M/mm3 (4.60-6.20); Red Cell Distribution Width 12.3 % (11.5-17.5); White Blood Count 17.1 K/mm3 (4.8-10.8)
[2024-11-01 07:01] LABS: MANUAL DIFFERENTIAL MANUAL DIFFERENTIAL (MANUAL DIFF)
[2024-11-01 07:05] LABS: Alanine Aminotransferase 17 U/L (12-78); Albumin Level 3.2 g/dl (3.5-5.0); Albumin/Globulin Ratio 1.4 (1.1-1.8); Alkaline Phosphatase 62 U/L (38-126); Anion Gap 3.8 mEq/L (5-15); Aspartate Amino Transferase 32 U/L (17-59); Bilirubin,Total 1.4 mg/dl (0.2-1.3); Blood Urea Nitrogen 5 mg/dl (9-20); Carbon Dioxide 28 mmol/L (22.0-30.0); Chloride 103 mmol/L (98-107); Creatinine Clearance Estimated 149 mL/min (50-200); Estimated Glomerular Filt Rate 129 ml/min (>60); GFR (African American) 156 ML/MIN (>60); Globulin 2.3 g/dL (1.3-3.2); Glucose 105 mg/dl (74-100); Magnesium 2.4 mg/dl (1.6-2.3); Potassium 3.8 mmoL/L (3.5-5.1); Sodium 131 mmol/L (136-145); Total Protein,Serum 5.5 g/dl (6.3-8.2)
[2024-11-01 07:12] LABS: Hemoglobin 13.3 g/dL (14.1-18.0)
[2024-11-01 08:00] VITALS: BP 150/90; PULSE 82; RESP 20; TEMP 36.7; O2SAT 97
[2024-11-01 08:11] LABS: Eosinophils % 1 % (0-3); Lymphocytes % 13 % (10-50); Monocytes % 4 % (2-9); Neutrophils % 82 % (42-76); Platelet Estimate Normal; RBC Morphology Normal; Total Cells Counted 100
--- NOTE | 2024-11-01 08:50 | PC.NURSE ---
PT DOES NOT WANT MORNING MEDICATIONS AT THIS TIME. WILL REASSESS LATER.
[2024-11-01] MEDS: FOLIC ACID 1MG TABLET 1 MG PO (09:07)
[2024-11-01] MEDS: THIAMINE 100MG TABLET 100 MG PO (09:07)
[2024-11-01] MEDS: ENOXAPARIN 40MG/0.4ML SYRINGE 40 MG SUBCUT (09:07)
--- NOTE | 2024-11-01 15:30 | P.PN_ITS ---
Subjective *Date: 11/01/24 *Time: 15:30 Interval history: Patient continues to have waxing and waning epigastric abdominal pain, nausea without significant vomiting. Feels bloated today. Started simethicone 160 mg 4 times daily. Advanced dinner to low fat diet. Monitor for response. Exam Data for Last 24 hours Vital signs and Labs for Last 24 Hours: Temp Pulse Resp BP Pulse Ox O2 Del Method 98.1 F 82 20 150/90 H 97 Room Air 11/01/24 08:00 11/01/24 08:00 11/01/24 08:00 11/01/24 08:00 11/01/24 08:00 11/01/24 14:26 Laboratory Results - last 24 hr 11/01/24 06:23: WBC 17.1 H, RBC 4.26 L, Hgb 13.3 L D, Hct 38.9 L, MCV 91.3, MCH 30.8, MCHC 33.7, RDW 12.3, Plt Count 149, MPV 9.9, Neut % (Auto) 82.9 H, Lymph % (Auto) 6.2 L, [place] % (Auto) 6.2, Eos % (Auto) 3.8, Baso % (Auto) 0.5, Neut # (Auto) 14.1 H, Lymph # (Auto) 1.1, [place] # (Auto) 1.1 H, Eos # (Auto) 0.7 H, Baso # (Auto) 0.1, Total Counted 100, Neutrophils % (Manual) 82 H, Lymphocytes % (Manual) 13, Monocytes % (Manual) 4, Eosinophils % (Manual) 1, Platelet Estimate Normal, RBC Morphology Normal, Sodium 131 L, Potassium 3.8, Chloride 103, Carbon Dioxide 28, Anion Gap 3.8 L, BUN 5 L D, Creatinine 0.70, Estimated Creat Clear 149, Estimated GFR 129, Est GFR ( Amer) 156, Glucose 105 H, Calcium 8.0 L , Magnesium 2.4 H D, Total Bilirubin 1.4 H, AST 32, ALT 17 D, Alkaline Phosphatase 62, Total Protein 5.5 L, Albumin 3.2 L D, Globulin 2.3, Albumin/Globulin Ratio 1.4 I & O for Last 24 hours: Intake & Output 10/29/24 10/30/24 10/31/24 11/01/24 23:59 23:59 23:59 23:59 Intake Total 2571 1300 / 1300 Output Total 0 / 0 0 / 0 0 / 0 Balance 0 / 100 2571 1300 / 1300 Weight 65.062 kg 68.765 kg 70.624 kg Constitutional Constitutional: no acute distress *Routine HEENT Exam Head: Present normocephalic Eye: Present EOMI and PERRL ENT: Present mucous membranes moist *Routine Neck Exam Neck: Present supple; Absent lymphadenopathy *Routine Respiratory Exam Respiratory: Present CTA bilaterally *Routine Cardiovascular Exam Cardiovascular: Present RRR *Routine Abdominal Exam Abdominal: Present soft, normoactive bowel sounds and tenderness *Routine Extremities Exam Extremities: Absent cyanosis, clubbing or edema *Routine Skin Exam Skin: Present warm; Absent rash *Routine Neurological Exam Neurological: Present alert and oriented X3 Assessment and Plan *Assessment and plan (1) Acute pancreatitis: Status: Acute Category: Medical Code(s): K85.90 - Acute pancreatitis without necrosis or infection, unspecified Plan Pantera Stack is a 34-year-old male with a medical history significant for anxiety/depression who presents with nausea/vomiting, epigastric pain. Patient states symptoms started about 2 hours prior to arrival to the ED. Endorses drinking 4 shots of bourbon every night for quite some time. No fever/chills, chest pain, shortness of breath. Workup in the ED significant for WBC 22.8, lipase 11,149, CT abdomen/pelvis shows diffuse perinephric inflammation. Case discussed with ED provider and decision was made to admit patient for acute zheng creatitis. #Acute alcoholic pancreatitis ? Endorses to drinking 4 shots of bourbon a night. ? Triglycerides, calcium normal. Emmett's criteria low at 2 points. 1% mortality rate. LDH 210. ? WBC improving to 17.1, peaked at 22.8. Likely from inflammatory response. No necrosis, pseudocyst, abscess noted on CT abdomen. ? Patient continues to have waxing and waning epigastric abdominal pain, nausea without significant vomiting. Feels bloated today. ? Started simethicone 160 mg 4 times daily. ? IV LR at 125 mg/h. ? Tylenol, Toradol, morphine as needed. ? Will advance to low-fat diet for dinner. Monitor for response. #Alcohol use disorder ? Uses it to help sleep at night. ? CIWA protocol, Ativan as needed. CIWA scores essentially normal today. ? Multivitamins. Full code DVT prophylaxis: Lovenox 40 mg
[2024-11-01 15:53] VITALS: BP 150/93; PULSE 88; RESP 18; TEMP 36.9; O2SAT 96
[2024-11-01] MEDS: SIMETHICONE 80MG CHEWABLE TABLET 160 MG PO ×2 (16:24→20:51)
[2024-11-01] MEDS: MULTIVITAMIN TABLET 1 EACH PO (16:24)
--- NOTE | 2024-11-01 16:52 | PC.NURSE ---
AOX4, HAS RESTED IN BED FOR MOST OF SHIFT. HE HAS NOT REQUIRED O2 SUPPORT THUS FAR. C/O ABD PAIN THAT WAS RELIEVED BY A DOSE OF GAS-X. NO N/V TODAY BUT DID HAVE SOME BLOATING POST MEAL.
[2024-11-01] MEDS: KETOROLAC 30MG/ML VIAL 30 MG IV (17:48)
[2024-11-01 20:00] VITALS: BP 145/85; PULSE 89; RESP 16; TEMP 37.5; O2SAT 96
[2024-11-02] MEDS: KETOROLAC 30MG/ML VIAL 30 MG IV ×2 (00:03→09:08)
[2024-11-02] MEDS: ONDANSETRON 4MG/2ML VIAL 4 MG IV ×2 (00:04→09:08)
[2024-11-02] MEDS: SIMETHICONE 80MG CHEWABLE TABLET 160 MG PO ×2 (03:17→08:18)
[2024-11-02 04:00] VITALS: BP 128/78; PULSE 81; RESP 16; TEMP 36.9; O2SAT 93; BMI 23.7
--- NOTE | 2024-11-02 06:00 | PC.NURSE ---
Pt is A&Ox4. Pt has c/o RUQ pain this shift, and nausea and was treated MAR. Pt CIWA scores have been 1 or below this shift. Pt denies pain and needs at this time. Pt has not had any acute changes to note this shift
[2024-11-02 06:55] LABS: Basophils # 0.1 K/mm3 (0-0.2); Basophils % 0.4 % (0.1-2.0); Eosinophils # 0.7 K/mm3 (0.0-0.4); Eosinophils % 4.9 % (0.1-12.0); Hematocrit 34.7 % (42.0-52.0); Hemoglobin 11.5 g/dL (14.1-18.0); Lymphocytes # 1.3 K/mm3 (0.7-4.5); Lymphocytes % 8.8 % (10-50); Mean Corpuscular HGB Conc 33.1 g/dL (31.8-35.4); Mean Corpuscular Hemoglobin 30.6 pg (27.0-31.2); Mean Corpuscular Volume 92.3 fl (80-94); Mean Platelet Volume 9.9 fl (7.4-10.4); Monocytes # 1.3 K/mm3 (0.1-1.0); Neutrophils # 10.9 K/mm3 (1.8-7.8); Neutrophils % 76.3 % (37.0-80.0); Platelet Count 134 K/mm3 (142-424); Red Blood Count 3.76 M/mm3 (4.60-6.20); Red Cell Distribution Width 12.1 % (11.5-17.5); White Blood Count 14.3 K/mm3 (4.8-10.8)
--- NOTE | 2024-11-02 07:00 | US_ITS ---
FINAL REPORT TECHNIQUE: Multiple transverse and longitudinal images CLINICAL HISTORY: PANCREATITIS, ELEVATED TOTAL BILIRUBIN COMPARISON: CT of the abdomen and pelvis 10/30/2024 FINDINGS: The gallbladder is contracted, which somewhat limits assessment for gallstones. No obvious gallstones are identified. There is mild gallbladder wall thickening, probably secondary to the contraction. A right pleural effusion is identified as well as free fluid in the right upper quadrant of the abdomen, which has slightly increased since the prior CT of 10/30/2024. The liver is unremarkable in appearance. IMPRESSION: Contracted gallbladder, which somewhat limits assessment for gallstones. No obvious gallstones are identified. A right pleural effusion is present, with ascites in the right upper quadrant of the abdomen. The amount of ascites has slightly increased since the prior CT. Reviewed, Interpreted and Dictated by Telly Mensah MD Transcribed by Nelsy Hernandez Authenticated and [facility]
[2024-11-02 07:52] LABS: Lipase 2444 U/L (23-300)
[2024-11-02 08:00] VITALS: BP 136/86; PULSE 91; RESP 18; TEMP 36.9; O2SAT 94
[2024-11-02] MEDS: FOLIC ACID 1MG TABLET 1 MG PO (08:18)
[2024-11-02] MEDS: THIAMINE 100MG TABLET 100 MG PO (08:18)
[2024-11-02] MEDS: ENOXAPARIN 40MG/0.4ML SYRINGE 40 MG SUBCUT (08:18)
[2024-11-02 08:34] LABS: Alanine Aminotransferase 16 U/L (12-78); Albumin/Globulin Ratio 1.3 (1.1-1.8); Alkaline Phosphatase 63 U/L (38-126); Aspartate Amino Transferase 30 U/L (17-59); Bilirubin,Total 1.1 mg/dl (0.2-1.3); Blood Urea Nitrogen 5 mg/dl (9-20); Calcium 8.1 mg/dl (8.4-10.2); Carbon Dioxide 31 mmol/L (22.0-30.0); Chloride 101 mmol/L (98-107); Creatinine Clearance Estimated 149 mL/min (50-200); Estimated Glomerular Filt Rate 129 ml/min (>60); GFR (African American) 156 ML/MIN (>60); Globulin 2.4 g/dL (1.3-3.2); Glucose 94 mg/dl (74-100); Total Protein,Serum 5.4 g/dl (6.3-8.2)
[2024-11-02 08:36] LABS: Sodium 134 mmol/L (136-145)
--- NOTE | 2024-11-02 09:42 | EXP.DC.SUM ---
General Admission date:: 10/30/24 Discharge date: 11/02/24 HPI HPI HPI: Pantera Stack is a 34-year-old male with a medical history significant for anxiety/depression who presents with nausea/vomiting, epigastric pain. Patient states symptoms started about 2 hours prior to arrival to the ED. Endorses drinking 4 shots of bourbon every night for quite some time. No fever/chills, chest pain, shortness of breath.Workup in the ED significant for WBC 22.8, lipase 11,149, CT abdomen/pelvis shows diffuse perinephric inflammation. Case discussed with ED provider and decision was made to admit patient for acute pancreatitis. Hospital Course Hospital Course Hospital Course: Pantera Stack is a 34-year-old male with a medical history significant for anxiety/depression who presents with nausea/vomiting, epigastric pain. Patient states symptoms started about 2 hours prior to arrival to the ED. Endorses drinking 4 shots of bourbon every night for quite some time. No fever/chills, chest pain, shortness of breath. Workup in the ED significant for WBC 22.8, lipase 11,149, CT abdomen/pelvis shows diffuse perinephric inflammation. Case discussed with ED provider and decision was made to admit patient for acute pancreatitis. Showed improvement with gradual advancement in diet. Lipase improving. Pain improving. As he is tolerating p.o. intake, having improvement in pain, and hemodynamically stable, stable to discharge home with further management as an outpatient. Problems addressed as follows: #Acute alcoholic pancreatitis ? Endorses to drinking 4 shots of bourbon a night. Triglycerides, calcium normal. Emmett's criteria low at 2 points. 1% mortality rate. LDH 210. White count elevated on admission, likely reactive. Peaked at 22.8. Improved to 14 by day of discharge. No signs of necrosis or pseudocyst or abscess noted on CT, no indication for antibiotics at this time. Has been able to advance diet to bland's. Pain manageable. Will continue some pain control at discharge, advance to regular low-fat diet. Lipase improved to 2400 by day of discharge. Stable discharge home. Counseled on protracted course for symptoms to resolve. Strongly encouraged abstinence from alcohol. #Alcohol use disorder ? Uses it to help sleep at night. CIWA protocol, Ativan as needed. CIWA scores essentially normal during admission. Strongly encouraged to discontinue drinking giving pancreatitis as above. Multivitamins during admission. Total time spent on discharge 32 minutes in counseling, documentation, chart review, and direct care with patient. Exam Data for Last 24 hours Vital signs and Labs for Last 24 Hours: Temp Pulse Resp BP Pulse Ox O2 Del Method 98.5 F 81 16 128/78 93 L Room Air 11/02/24 04:00 11/02/24 04:00 11/02/24 04:00 11/02/24 04:00 11/02/24 04:00 11/02/24 08:38 Laboratory Results - last 24 hr 11/02/24 06:29: WBC 14.3 H, RBC 3.76 L, Hgb 11.5 L, Hct 34.7 L, MCV 92.3, MCH 30.6, MCHC 33.1, RDW 12.1, Plt Count 134 L, MPV 9.9, Neut % (Auto) 76.3, Lymph % (Auto) 8.8 L, [place] % (Auto) 9.0, Eos % (Auto) 4.9, Baso % (Auto) 0.4, Neut # (Auto) 10.9 H, Lymph # (Auto) 1.3, [place] # (Auto) 1.3 H, Eos # (Auto) 0.7 H, Baso # (Auto) 0.1, Sodium 134 L, Potassium 4.0, Chloride 101, Carbon Dioxide 31 H, Anion Gap 6.0, BUN 5 L, Creatinine 0.70, Estimated Creat Clear 149, Estimated GFR 129, Est GFR ( Amer) 156, Glucose 94, Calcium 8.1 L, Magnesium 2.0 D, Total Bilirubin 1.1, AST 30, ALT 16, Alkaline Phosphatase 63, Total Protein 5.4 L, Albumin 3.0 L, Globulin 2.4, Albumin/Globulin Ratio 1.3, Lipase 2444 H I & O for Last 24 hours: Intake & Output 10/30/24 10/31/24 11/01/24 11/02/24 23:59 23:59 23:59 23:59 Intake Total 2572 / 2672 1400 / 2265 865 / 865 Output Total 0 / 0 0 / 0 0 / 0 0 / 0 Balance 0 / 100 2572 / 2672 1400 / 2265 865 / 865 Weight 65.062 kg 68.765 kg 70.624 kg 71.078 kg Constitutional Constitutional: no acute distress, average body habitus and cooperative *Routine HEENT Exam Head: Present normocephalic Eye: Present EOMI and PERRL ENT: Present mucous membranes moist *Routine Neck Exam Neck: Present supple; Absent lymphadenopathy *Routine Respiratory Exam Respiratory: Present CTA bilaterally; Absent rhonchi, wheezes or crackles *Routine Cardiovascular Exam Cardiovascular: Present RRR *Routine Abdominal Exam Abdominal: Present soft, normoactive bowel sounds and tenderness (LUQ) *Routine Rectal Exam Patient deferred: visual exam *Routine Exam Patient deferred: penile exam *Routine Extremities Exam Extremities: Absent cyanosis, clubbing or edema *Routine Skin Exam Skin: Present warm; Absent rash *Routine Neurological Exam Neurological: Present alert, oriented X3 and moving all extremities; Absent altered mental status Results Data Completed and Pending Labs on day of discharge: Labs from last 24 hours 11/02/24 06:29 WBC 14.3 H RBC 3.76 L Hgb 11.5 L Hct 34.7 L MCV 92.3 MCH 30.6 MCHC 33.1 RDW 12.1 Plt Count 134 L MPV 9.9 Neut % (Auto) 76.3 Lymph % (Auto) 8.8 L [place] % (Auto) 9.0 Eos % (Auto) 4.9 Baso % (Auto) 0.4 Neut # (Auto) 10.9 H Lymph # (Auto) 1.3 [place] # (Auto) 1.3 H Eos # (Auto) 0.7 H Baso # (Auto) 0.1 Sodium 134 L Potassium 4.0 Chloride 101 Carbon Dioxide 31 H Anion Gap 6.0 BUN 5 L Creatinine 0.70 Estimated Creat Clear 149 Estimated GFR 129 Est GFR ( Amer) 156 Glucose 94 Calcium 8.1 L Magnesium 2.0 D Total Bilirubin 1.1 AST 30 ALT 16 Alkaline Phosphatase 63 Total Protein 5.4 L Albumin 3.0 L Globulin 2.4 Albumin/Globulin Ratio 1.3 Lipase 2444 H DS: Diagnosis Discharge Diagnosis (1) Acute pancreatitis: Status: Acute Code(s): K85.90 - Acute pancreatitis without necrosis or infection, unspecified Meds Home Medications and Allergies Home Medications ?Medication ?Instructions ?Recorded ?Confirmed ?Type hydrocodone 5 mg-acetaminophen 325 1 tab PO Q8H PRN pain #9 tabs 11/02/24 Rx mg tablet ondansetron 4 mg disintegrating 4 mg PO Q8H PRN nausea and 11/02/24 Rx tablet vomiting #10 tabs New Prescriptions to Start Prescriptions: hydrocodone-acetaminophen Royal Echols James Allergies Allergy/AdvReac Type Severity Reaction Status Date / Time No Known Allergies Allergy Verified 10/30/24 15:37 Discharge Plan Disposition Patient Disposition: Home, Self-Care Condition: Fair Discharge Order Discharge Orders: Discharge Order (Routine); Ordered 11/02/24 Ordered By: Royal Echols Follow up Plan Follow up with: Jarad Ha MD [Referring] - Enter time for follow up (please call for appointment) Prescriptions/Medication Reconciliation: New ondansetron 4 mg tablet,disintegrating 4 mg PO Q8H PRN (Reason: nausea and vomiting) Qty: 10 0RF hydrocodone-acetaminophen 5-325 mg tablet 1 tab PO Q8H PRN (Reason: pain) Qty: 9 0RF Problem Reconciliation Problems Reviewed?: Yes Patient Discharge Instructions ACTIVITY: Continue current activity DIET: continue same diet and advance to your usual diet Patient Instructions: Pancreatitis (Alternative Therapy), DI for Pancreatitis Print Language: Surinamese Providers Primary Care Provider: Provider,Referral Admit Provider: Neeraj Irwin Attending Provider: Neeraj Irwin
--- NOTE | 2024-11-02 12:26 | PC.NURSE ---
Home Medications No Known Home Medications 10/31/24 [History Confirmed 10/31/24] Active Medications Acetaminophen (Acetaminophen 325mg Tab) 650 mg PO Q4HP PRN PRN Reason: Fever or Mild Pain (1-3) Stop: 11/29/24 18:15 Enoxaparin Sodium (Enoxaparin 40mg/0.4ml Syringe) 40 mg SUBCUT DAILY [facility] Stop: 11/30/24 08:59 Last Admin: 11/02/24 08:18 Dose: 40 mg Folic Acid (Folic Acid 1mg Tablet) 1 mg PO DAILY [facility] Stop: 11/30/24 08:59 Last Admin: 11/02/24 08:18 Dose: 1 mg Ketorolac Tromethamine (Ketorolac 30mg/Ml Vial) 30 mg IV Q6HP PRN PRN Reason: Moderate to Severe Pain (4-10) Stop: 11/04/24 18:52 Last Admin: 11/02/24 09:08 Dose: 30 mg Lorazepam (Lorazepam 2mg/Ml Vial) 2 mg IV Q1HP PRN PRN Reason: CIWA >16 Stop: 11/29/24 18:40 Lorazepam (Lorazepam 1mg Tablet) 1 mg PO Q1HP PRN PRN Reason: CIWA Score 8-15 Stop: 11/29/24 18:40 Morphine Sulfate (Morphine 4mg/Ml Syringe) 4 mg IV Q4HP PRN PRN Reason: Severe Pain (7-10) Stop: 11/29/24 18:15 Last Admin: 10/31/24 01:06 Dose: 4 mg Multivitamins (Multivitamin Tablet) 1 each PO 1700 [facility] Stop: 11/30/24 16:59 Last Admin: 11/01/24 16:24 Dose: 1 each Ondansetron HCl (Ondansetron 4mg/2ml Vial) 4 mg IV Q6HP PRN PRN Reason: Nausea Stop: 11/30/24 03:55 Last Admin: 11/02/24 09:08 Dose: 4 mg Simethicone (Simethicone 80mg Chewable Tablet) 160 mg PO Q6H [facility] Stop: 12/01/24 15:44 Last Admin: 11/02/24 09:05 Dose: Not Given Sodium Chloride (Sodium Chloride 0.9% 10ml Flush Syringe) 10 ml IV NEEDED PRN PRN Reason: Maintain IV Site Stop: 11/29/24 18:15 Sodium Chloride (Sodium Chloride 0.9% 25ml Bag) 25 ml IV NEEDED PRN PRN Reason: for Use with IV Promethazine Stop: 11/29/24 18:15 Last Admin: 10/30/24 18:30 Dose: 25 ml Sodium Chloride (Sodium Chloride 0.9% 10ml Vial) 10 ml IV NEEDED PRN PRN Reason: to Dilute Lorazepam inj Stop: 11/29/24 18:40
--- NOTE | 2024-11-02 14:38 | PC.NURSE ---
IV removed prior to d/c
--- NOTE | 2024-11-03 10:11 | SW/DCPLANNER ---
Spoke with patient on the phone. Patient stated that he is doing much better. Patient stated that he is going at 1 today for his follow up appointment with his primary care provider. Patient stated that he done the meds to bed and clinic pharmacy was able to bring them. Patient stated that he has no concerns or questions at this time. Malcolm Bueno
== END 2024-11-02 15:08 | disposition home or self-care (01) | DRG 440 ==
LOC: ER 15:45 → 2ND 18:03
PROVIDERS: Nurse Practitioner; Admitting Provider Student in an Organized Health Care Education/Training Program; Emergency Provider Emergency Medicine; Visit Provider Student in an Organized Health Care Education/Training Program
DX: K85.20 Alcohol induced acute pancreatitis without necrosis or infection (principal); F10.10 Alcohol abuse, uncomplicated; F41.9 Anxiety disorder, unspecified; F17.210 Nicotine dependence, cigarettes, uncomplicated; R11.2 Nausea with vomiting, unspecified; F32.A Depression, unspecified; Z80.9 Family history of malignant neoplasm, unspecified; Z82.3 Family history of stroke; Z82.49 Family history of ischemic heart disease and other diseases of the circulatory system
CPT/HCPCS: 36415; 71045; 74018; 74177; 76705; 80053; 80061; 83615; 83690; 83735; 84484; 85007; 85025; 86803; 87389; 93005; 99285; J1171; J1650; J1885; J2270; J2405; J2550; J3475; J3480; J7030; J7120; Q9967

== ENCOUNTER 2024-11-13 16:53 | Inpatient (IN) | payer BC, SELFPAY ==
[2024-11-13 17:01] VITALS: BP 130/96; PULSE 89; O2SAT 98
[2024-11-13 17:06] VITALS: BP 130/96; PULSE 89; RESP 19; TEMP 36.6; O2SAT 98; BMI 22.8
--- NOTE | 2024-11-13 17:08 | ECG_ITS ---
APPROVED REPORT Exam: Resting ECG HR:80 bpm ECG Measurements Heart Rate 80 AXES OK 155 P 74 QRSd 93 QRS 40 QT 352 T 56 QTc 389 Conclusion SINUS RHYTHM POSSIBLE RIGHT VENTRICULAR CONDUCTION DELAY [RSR (QR) IN V1/V2] BORDERLINE ECG No STEMI Electronically signed by : LENNY JENKINS, 11/14/2024 00:13:14
--- NOTE | 2024-11-13 17:08 | CT_ITS ---
PROCEDURE INFORMATION: Exam: CT Abdomen And Pelvis With Contrast Exam date and time: 11/13/2024 5:38 PM Age: 34 years old Clinical indication: Other: Pancreatitis TECHNIQUE: Imaging protocol: Computed tomography of the abdomen and pelvis with contrast. Radiation optimization: All CT scans at this facility use at least one of these dose optimization techniques: automated exposure control; mA and/or kV adjustment per patient size (includes targeted exams where dose is matched to clinical indication); or iterative reconstruction. Contrast material: ISOVUE; Contrast volume: 75 ml; Contrast route: IV; COMPARISON: CT ABDOMEN PELVIS W CON 10/30/2024 4:01 PM FINDINGS: Liver: Normal. No mass. Gallbladder and biliary ducts: Normal. No calcified stones. No ductal dilation. Pancreas: A newly developed 3.4 x 2.5 cm centrally nonenhancing fluid attenuating focus is noted within the mid body of the pancreas. Peripheral rim enhancement suggested. An additional collection is noted adjacent to the stomach and distal pancreatic body measuring 3.8 x 2.8 cm. Peripancreatic mesenteric stranding and fluid is noted. Overall amount of peripancreatic fluid has decreased when compared with the prior study. Free fluid is noted in the abdomen and pelvis, most likely secondary to previously noted pancreatic inflammatory process. Spleen: Normal. No splenomegaly. Adrenal glands: Normal. No mass. Kidneys and ureters: Normal. No hydronephrosis. Stomach and bowel: Secondary inflammatory change involving body of the stomach due to pancreatitis is suggested. Appendix: No evidence of appendicitis. Intraperitoneal space: Unremarkable. No free air. No significant fluid collection. Vasculature: Unremarkable. No abdominal aortic aneurysm. Lymph nodes: Unremarkable. No enlarged lymph nodes. Urinary bladder: Mildly thickened urinary bladder wall may be secondary to inadequate distension. Reproductive: Unremarkable as visualized. Bones/joints: Unremarkable. No acute fracture. Soft tissues: Unremarkable. IMPRESSION: 1. Newly developed centrally nonenhancing fluid density within mid body of the pancreas. Additional collection noted in the distal body of the pancreas. Differential considerations include pseudocyst formation versus pancreatic necrosis. Clinical follow-up recommended. Additional imaging such as contrast-enhanced MRI may be helpful for further evaluation. 2. Inflammatory process involving body of the stomach secondary to ongoing pancreatitis suggested. Follow-up clinically.
[2024-11-13 17:14] LABS: Microscopic, Urine URINE MICROSCOPIC (MICROSCOPIC)
--- NOTE | 2024-11-13 17:14 | HMH.EDGENADL ---
Discharge Plan Disposition Patient Disposition: Admitted Condition: Fair Clinical Impressions Clinical Impression: Acute necrosis of pancreas Pancreatitis Qualifiers: Chronicity: acute Pancreatitis type: unspecified pancreatitis type Acute pancreatitis complication: infected necrosis Qualified Code(s): K85.92 - Acute pancreatitis with infected necrosis, unspecified Discharge ED Provider: Jong Gibson General Adult HPI <Saira Chung (ED), VACUUM EXTRACTOR OPERATOR - Last Filed: 11/13/24 19:42> General Chief complaint: Abdominal Pain Stated complaint: abdominal pain Time Seen by Provider: 11/13/24 16:58 Mode of Arrival: Ambulatory Source of Information: Patient Description of Symptoms (Recalled from ER Triage Doc. by RN): pt presents to ED with c/o left sided abdomainl pain. pt reports that he stretched at home approx 1 hour [employer] and began to have sharp abdominal pain. pt reports he has had no alcohol in 3 weeks. pt with recent admission for pancreatitis. History of Present Illness HPI narrative: 34-year-old male presents to the ED for complaint of left-sided abdominal pain that started 1 hour ago. Patient states that he was stretching and began to have sharp abdominal pain in the left side. He has had history of pancreatitis and was hospitalized here for 4 days a week ago. His lipase was over 11,000 when he was admitted. When he was discharged his lipase was 2400. Patient was placed on a diet and told to drink plenty of fluids. He was given pain medication and nausea medication. He states that he is unsure what his pancreatitis is from. He was told it may be gallstones or diet related but he does drink alcohol and drinks daily up until approximately 3 weeks ago. Related Data Allergies Allergy/AdvReac Type Severity Reaction Status Date / Time No Known Allergies Allergy Verified 10/30/24 15:37 PFSH <Saira Chung (ED), VACUUM EXTRACTOR OPERATOR - Last Filed: 11/13/24 19:42> PFS Disclaimer: The information contained in this section may have been updated after the patient was seen, as this information can be updated by other users. Medical History (Updated 11/13/24 @ 20:56 by Jong Gibson MD) Murmur History of palpitations Anxiety Family History (Updated 10/30/24 @ 18:11 by Liya Mccormick RN) Other Family history of cancer Family history of myocardial infarction Family history of stroke Social History (Updated 11/13/24 @ 20:21 by Josefina Courtney RN) Smoking Status: Current every day smoker alcohol intake: former substance use type: marijuana current occupational status: employed Travel in the last 8 weeks: None Have you lived/traveled outside US in past 30 days?: No Contact w/someone who lives/traveled outside US past 30 days?: No Exposure to someone with infectious disease in past 14 days?: No Do you have a fever (greater than 100.4 F or 38 C)?: No Have you tested positive for COVID-19: No Exposed to someone with COVID-19 in past 14 days?: No Do you have a sore throat?: No Do you have a cough?: No Do you have any weakness?: No Are you experiencing any nausea/vomitting?: No Do you have any diarrhea?: No Are you experiencing any unusual bleeding?: No Do you have any muscle aches/pain?: Yes Do you have any abdominal pain?: Yes Are you experiencing loss of taste or smell?: No Other Medical History Have you received the Flu Vaccine for this season: No Have you received the Pneumonia Vaccine: No <Saira Chung (ED), VACUUM EXTRACTOR OPERATOR - Last Filed: 11/13/24 19:42> ROS Obtained: Yes Systems reviewed as appropriate & no additional complaints except as documented Constitutional Constitutional: Reports as per HPI Physical Exam <Saira Chung (ED), VACUUM EXTRACTOR OPERATOR - Last Filed: 11/13/24 19:42> General General appearance: alert, anxious and in distress Head Head exam: atraumatic Eye Eye exam: Present PERRL and EOMI ENT ENT exam: Present normal oropharynx and mucous membranes moist Neck Neck exam: Present full ROM and trachea midline Respiratory Respiratory exam: Present normal lung sounds bilaterally Cardiovascular Cardiovascular exam: Present regular rate, normal rhythm, normal heart sounds, +S1 and +S2 Abdominal Exam Abdominal exam: Present guarding and normal bowel sounds Extremities Exam Extremities exam: Present normal inspection, full ROM and normal capillary refill Neurological Exam Neurological exam: Present alert and oriented X3 Skin Skin exam: Present warm, dry and intact Medical Decision Making <Saira Chung (ED), VACUUM EXTRACTOR OPERATOR - Last Filed: 11/13/24 19:42> Medical Records Medical records reviewed: Yes I reviewed the patient's medical records. Screening: Per USPSTF and CDC recommendations, given the prevalence of disease in our region, it is our hospital?s policy to screen for HIV and viral Hepatitis for all patients aged 18 and over and those with ongoing risk factors. Cameron Inquiry Pt receiving controlled substance: No Cameron was queried for this patient: No Vital Signs: 11/13/24 17:01 11/13/24 17:06 11/13/24 17:30 Temperature 97.9 F Temperature Source Oral Pulse Rate 89 86 Pulse Rate [Left Radial] 89 Respiratory Rate 19 18 Blood Pressure 130/96 H 129/83 Blood Pressure [Right Arm] 130/96 H Blood Pressure Mean 98 Blood Pressure Mean [Right Arm] 107 Blood Pressure Source Blood Pressure Source [Right Arm] Automatic Cuff Blood Pressure Position Blood Pressure Position [Right Arm] Supine 02 Sat by Pulse Oximetry 98 98 100 Oxygen Delivery Method Room Air Room Air 11/13/24 19:45 11/13/24 19:52 Temperature 98.3 F Temperature Source Oral Pulse Rate 79 Pulse Rate [Left Radial] Respiratory Rate 16 Blood Pressure 112/75 Blood Pressure [Right Arm] Blood Pressure Mean Blood Pressure Mean [Right Arm] Blood Pressure Source Automatic Cuff Blood Pressure Source [Right Arm] Blood Pressure Position Sitting Blood Pressure Position [Right Arm] 02 Sat by Pulse Oximetry Oxygen Delivery Method Room Air Room Air Lab Data Lab Results 11/13/24 17:05: WBC 24.4 H*, RBC 4.55 L, Hgb 13.7 L, Hct 41.9 L, MCV 92.1, MCH 30.1, MCHC 32.7, RDW 12.3, Plt Count 786 H, MPV 8.6, Neut % (Auto) 82.8 H, Lymph % (Auto) 10.0, [place] % (Auto) 4.1, Eos % (Auto) 1.9, Baso % (Auto) 0.7, Neut # (Auto) 20.2 H, Lymph # (Auto) 2.5, [place] # (Auto) 1.0, Eos # (Auto) 0.5 H, Baso # (Auto) 0.2, Total Counted 100, Neutrophils % (Manual) 85 H, Lymphocytes % (Manual) 11, Monocytes % (Manual) 3, Eosinophils % (Manual) 1, Platelet Estimate Marked increase, RBC Morphology Normal, Sodium 142, Potassium 4.3, Chloride 101, Carbon Dioxide 29, Anion Gap 16.3 H, BUN 13, Creatinine 0.80, Estimated Creat Clear 125, Estimated GFR 111, Est GFR ( Amer) 134, Glucose 110 H, Calcium 10.1, Magnesium 2.3, Total Bilirubin 0.5, AST 31, ALT 32, Alkaline Phosphatase 78, Troponin I < 0.01, Total Protein 8.5 H D, Albumin 4.7, Globulin 3.8 H, Albumin/Globulin Ratio 1.2, Lipase 603 H, Urine Color Yellow, Urine Appearance Clear, Urine pH 5.5, Ur Specific [place] >= 1.030, Urine Protein Negative, Urine Glucose (UA) Negative, Urine Ketones Negative, Urine Blood Trace-i, Urine Nitrate Negative, Urine Bilirubin Negative, Urine Urobilinogen 0.2, Ur Leukocyte Esterase Negative, Urine RBC None, Urine WBC 3-5, Ur Squamous Epith Cells Occasional, Urine Bacteria Trace 11/13/24 17:46: Lactate 0.8 11/13/24 17:05 11/13/24 17:05 Orders (Tests/Meds): ED MEDICATIONS Generic Name Dose Route Start Last Admin Trade Name Freq PRN Reason Stop Dose Admin Acetaminophen 650 mg 11/13/24 19:44 Acetaminophen 325mg Tab PO 12/13/24 19:43 Q4HP PRN Fever or Mild Pain (1-3) Enoxaparin Sodium 40 mg 11/14/24 09:00 Enoxaparin 40mg/0.4ml Syringe SUBCUT 12/14/24 08:59 DAILY JAYLEN Hydromorphone HCl 0.5 mg 11/13/24 19:44 Hydromorphone 2mg/Ml Syringe IV 12/13/24 19:43 Q4HP PRN Severe Pain (7-10) Sodium Chloride 1,000 mls @ 75 mls/hr 11/13/24 19:45 11/13/24 20:13 Sod Chlor 0.9% 1000ml Bag IV 12/13/24 19:44 75 mls/hr .[id number] JAYLEN Administration Piperacillin Sod/Tazobactam 50 mls @ 100 mls/hr 11/14/24 02:00 Sod 3.375 gm/ Sodium Chloride IV 11/24/24 01:59 Q8H JAYLEN Ketorolac Tromethamine 15 mg 11/13/24 19:44 Ketorolac 30mg/Ml Vial IV 11/18/24 19:43 Q6HP PRN Moderate Pain (4-6) Ondansetron HCl 4 mg 11/13/24 19:44 Ondansetron 4mg/2ml Vial IV 12/13/24 19:43 Q8HP PRN Nausea Sodium Chloride 10 ml 11/13/24 19:44 Sodium Chloride 0.9% 10ml Flush Syringe IV 12/13/24 19:43 NEEDED PRN Maintain IV Site Discontinued Medications Generic Name Dose Route Start Last Admin Trade Name Freq PRN Reason Stop Dose Admin Hydromorphone HCl 1 mg 11/13/24 17:07 11/13/24 17:18 Hydromorphone 2mg/Ml Syringe IV 11/13/24 17:08 1 mg ONCE ONE Administration Sodium Chloride 1,000 mls @ 999 mls/hr 11/13/24 17:07 11/13/24 17:17 Sod Chlor 0.9% 1000ml Bag IV 11/13/24 18:07 999 mls/hr .Q1H1M ONE Administration Piperacillin Sod/Tazobactam 100 mls @ 200 mls/hr 11/13/24 19:45 11/13/24 19:42 Sod 4.5 gm/ Sodium Chloride IV 11/13/24 20:14 200 mls/hr ONCE ONE Administration Iopamidol 75 ml 11/13/24 17:40 11/13/24 17:40 Iopamidol-370 (76%);100ml Bottle IV 11/13/24 17:41 75 ml ONCE ONE Administration Ondansetron HCl 4 mg 11/13/24 17:07 11/13/24 17:17 Ondansetron 4mg/2ml Vial IV 11/13/24 17:08 4 mg ONCE ONE Administration Sodium Chloride 10 ml 11/13/24 17:40 11/13/24 17:40 Sodium Chloride 0.9% 10ml Syr (Rad Only) IV 11/13/24 17:41 10 ml ONCE ONE Administration ORDERS Category Date Time Status CT abdomen pelvis w con Stat Cat Scan 11/13/24 17:08 Completed CBC [Complete Blood Count Auto Diff] Stat Lab 11/13/24 17:05 Completed Complete Blood Count Auto Diff AMLAB Lab 11/14/24 06:00 Ordered Complete Blood Count Auto Diff AMLAB Lab 11/15/24 06:00 Ordered Complete Blood Count Auto Diff AMLAB Lab 11/16/24 06:00 Ordered Complete Blood Count Auto Diff AMLAB Lab 11/17/24 06:00 Ordered Complete Blood Count Auto Diff AMLAB Lab 11/18/24 06:00 Ordered Comprehensive Metabolic Panel [facility]AB Lab 11/14/24 06:00 Ordered Comprehensive Metabolic Panel AMLAB Lab 11/15/24 06:00 Ordered Comprehensive Metabolic Panel Stat Lab 11/13/24 17:05 Completed Lactic Acid Stat Lab 11/13/24 17:46 Completed Lipase Stat Lab 11/13/24 17:05 Completed Magnesium AMLAB Lab 11/14/24 06:00 Ordered Magnesium Stat Lab 11/13/24 17:05 Completed Phosphorous AMLAB Lab 11/14/24 06:00 Ordered Troponin I Stat Lab 11/13/24 17:05 Completed UA [Urinalysis and Microscopic] Stat Lab 11/13/24 17:05 Completed Blood Culture Stat Micro 11/13/24 17:49 Received Medical Decision Narrative: Insert review patient is a 34-year-old male presenting to the emergency department for evaluation of left-sided abdominal pain. Patient is hemodynamically stable and nontoxic-appearing upon arrival, afebrile. Differential diagnosis includes pancreatitis, sepsis, among others. Workup will be conducted with hematologic labs, specific imaging, provocative tests. Initial inventions include crystalloid bolus, analgesics, antibiotics. Initial workup reviewed by me hematologic labs are remarkable for elevated white count at 24.4 as well as elevated lipase at 603.. Imaging informally interpreted by me and remarkable for possible pseudocyst versus pancreatic necrosis. Formal imaging read remarkable for pseudocyst versus pancreatic necrosis. Upon repeat evaluation patient's pain is somewhat improved with the Dilaudid and Zofran. I have talked to Bala from the hospitalist team as he will be admitted for his leukocytosis as well as the Crea Yamil and the possibility of the pancreatic necrosis. <Jong Gibson MD - Last Filed: 11/13/24 20:58> Vital Signs: 11/13/24 17:01 11/13/24 17:06 11/13/24 17:30 Temperature 97.9 F Temperature Source Oral Pulse Rate 89 86 Pulse Rate [Left Radial] 89 Respiratory Rate 19 18 Blood Pressure 130/96 H 129/83 Blood Pressure [Right Arm] 130/96 H Blood Pressure Mean 98 Blood Pressure Mean [Right Arm] 107 Blood Pressure Source Blood Pressure Source [Right Arm] Automatic Cuff Blood Pressure Position Blood Pressure Position [Right Arm] Supine 02 Sat by Pulse Oximetry 98 98 100 Oxygen Delivery Method Room Air Room Air 11/13/24 19:45 11/13/24 19:52 Temperature 98.3 F Temperature Source Oral Pulse Rate 79 Pulse Rate [Left Radial] Respiratory Rate 16 Blood Pressure 112/75 Blood Pressure [Right Arm] Blood Pressure Mean Blood Pressure Mean [Right Arm] Blood Pressure Source Automatic Cuff Blood Pressure Source [Right Arm] Blood Pressure Position Sitting Blood Pressure Position [Right Arm] 02 Sat by Pulse Oximetry Oxygen Delivery Method Room Air Room Air Lab Data Lab Results 11/13/24 17:05: WBC 24.4 H*, RBC 4.55 L, Hgb 13.7 L, Hct 41.9 L, MCV 92.1, MCH 30.1, MCHC 32.7, RDW 12.3, Plt Count 786 H, MPV 8.6, Neut % (Auto) 82.8 H, Lymph % (Auto) 10.0, [place] % (Auto) 4.1, Eos % (Auto) 1.9, Baso % (Auto) 0.7, Neut # (Auto) 20.2 H, Lymph # (Auto) 2.5, [place] # (Auto) 1.0, Eos # (Auto) 0.5 H, Baso # (Auto) 0.2, Total Counted 100, Neutrophils % (Manual) 85 H, Lymphocytes % (Manual) 11, Monocytes % (Manual) 3, Eosinophils % (Manual) 1, Platelet Estimate Marked increase, RBC Morphology Normal, Sodium 142, Potassium 4.3, Chloride 101, Carbon Dioxide 29, Anion Gap 16.3 H, BUN 13, Creatinine 0.80, Estimated Creat Clear 125, Estimated GFR 111, Est GFR ( Amer) 134, Glucose 110 H, Calcium 10.1, Magnesium 2.3, Total Bilirubin 0.5, AST 31, ALT 32, Alkaline Phosphatase 78, Troponin I < 0.01, Total Protein 8.5 H D, Albumin 4.7, Globulin 3.8 H, Albumin/Globulin Ratio 1.2, Lipase 603 H, Urine Color Yellow, Urine Appearance Clear, Urine pH 5.5, Ur Specific [place] >= 1.030, Urine Protein Negative, Urine Glucose (UA) Negative, Urine Ketones Negative, Urine Blood Trace-i, Urine Nitrate Negative, Urine Bilirubin Negative, Urine Urobilinogen 0.2, Ur Leukocyte Esterase Negative, Urine RBC None, Urine WBC 3-5, Ur Squamous Epith Cells Occasional, Urine Bacteria Trace 11/13/24 17:46: Lactate 0.8 Orders (Tests/Meds): ED MEDICATIONS Generic Name Dose Route Start Last Admin Trade Name Freq PRN Reason Stop Dose Admin Acetaminophen 650 mg 11/13/24 19:44 Acetaminophen 325mg Tab PO 12/13/24 19:43 Q4HP PRN Fever or Mild Pain (1-3) Enoxaparin Sodium 40 mg 11/14/24 09:00 Enoxaparin 40mg/0.4ml Syringe SUBCUT 12/14/24 08:59 DAILY JAYLEN Hydromorphone HCl 0.5 mg 11/13/24 19:44 Hydromorphone 2mg/Ml Syringe IV 12/13/24 19:43 Q4HP PRN Severe Pain (7-10) Sodium Chloride 1,000 mls @ 75 mls/hr 11/13/24 19:45 11/13/24 20:13 Sod Chlor 0.9% 1000ml Bag IV 12/13/24 19:44 75 mls/hr .[id number] JAYLEN Administration Piperacillin Sod/Tazobactam 50 mls @ 100 mls/hr 11/14/24 02:00 Sod 3.375 gm/ Sodium Chloride IV 11/24/24 01:59 Q8H JAYLEN Ketorolac Tromethamine 15 mg 11/13/24 19:44 Ketorolac 30mg/Ml Vial IV 11/18/24 19:43 Q6HP PRN Moderate Pain (4-6) Ondansetron HCl 4 mg 11/13/24 19:44 Ondansetron 4mg/2ml Vial IV 12/13/24 19:43 Q8HP PRN Nausea Sodium Chloride 10 ml 11/13/24 19:44 Sodium Chloride 0.9% 10ml Flush Syringe IV 12/13/24 19:43 NEEDED PRN Maintain IV Site Discontinued Medications Generic Name Dose Route Start Last Admin Trade Name Freq PRN Reason Stop Dose Admin Hydromorphone HCl 1 mg 11/13/24 17:07 11/13/24 17:18 Hydromorphone 2mg/Ml Syringe IV 11/13/24 17:08 1 mg ONCE ONE Administration Sodium Chloride 1,000 mls @ 999 mls/hr 11/13/24 17:07 11/13/24 17:17 Sod Chlor 0.9% 1000ml Bag IV 11/13/24 18:07 999 mls/hr .Q1H1M ONE Administration Piperacillin Sod/Tazobactam 100 mls @ 200 mls/hr 11/13/24 19:45 11/13/24 19:42 Sod 4.5 gm/ Sodium Chloride IV 11/13/24 20:14 200 mls/hr ONCE ONE Administration Iopamidol 75 ml 11/13/24 17:40 11/13/24 17:40 Iopamidol-370 (76%);100ml Bottle IV 11/13/24 17:41 75 ml ONCE ONE Administration Ondansetron HCl 4 mg 11/13/24 17:07 11/13/24 17:17 Ondansetron 4mg/2ml Vial IV 11/13/24 17:08 4 mg ONCE ONE Administration Sodium Chloride 10 ml 11/13/24 17:40 11/13/24 17:40 Sodium Chloride 0.9% 10ml Syr (Rad Only) IV 11/13/24 17:41 10 ml ONCE ONE Administration ORDERS Category Date Time Status CT abdomen pelvis w con Stat Cat Scan 11/13/24 17:08 Completed CBC [Complete Blood Count Auto Diff] Stat Lab 11/13/24 17:05 Completed Complete Blood Count Auto Diff AMLAB Lab 11/14/24 06:00 Ordered Complete Blood Count Auto Diff AMLAB Lab 11/15/24 06:00 Ordered Complete Blood Count Auto Diff AMLAB Lab 11/16/24 06:00 Ordered Complete Blood Count Auto Diff AMLAB Lab 11/17/24 06:00 Ordered Complete Blood Count Auto Diff [facility]AB Lab 11/18/24 06:00 Ordered Comprehensive Metabolic Panel AMLAB Lab 11/14/24 06:00 Ordered Comprehensive Metabolic Panel [facility]AB Lab 11/15/24 06:00 Ordered Comprehensive Metabolic Panel Stat Lab 11/13/24 17:05 Completed Lactic Acid Stat Lab 11/13/24 17:46 Completed Lipase Stat Lab 11/13/24 17:05 Completed Magnesium AMLAB Lab 11/14/24 06:00 Ordered Magnesium Stat Lab 11/13/24 17:05 Completed Phosphorous [facility] Lab 11/14/24 06:00 Ordered Troponin I Stat Lab 11/13/24 17:05 Completed UA [Urinalysis and Microscopic] Stat Lab 11/13/24 17:05 Completed Blood Culture Stat Micro 11/13/24 17:49 Received Medical Decision Narrative: Insert review patient is a 34-year-old male presenting to the emergency department for evaluation of left-sided abdominal pain. Patient is hemodynamically stable and nontoxic-appearing upon arrival, afebrile. Differential diagnosis includes pancreatitis, sepsis, among others. Workup will be conducted with hematologic labs, specific imaging, provocative tests. Initial inventions include crystalloid bolus, analgesics, antibiotics. Initial workup reviewed by me hematologic labs are remarkable for elevated white count at 24.4 as well as elevated lipase at 603.. Imaging informally interpreted by me and remarkable for possible pseudocyst versus pancreatic necrosis. Formal imaging read remarkable for pseudocyst versus pancreatic necrosis. Upon repeat evaluation patient's pain is somewhat improved with the Dilaudid and Zofran. I have talked to Bala from the hospitalist team as he will be admitted for his leukocytosis as well as the Crea Yamil and the possibility of the pancreatic necrosis. TAVARES attestation I was consulted by the TAVARES, and we discussed the complexity of problems being addressed. I approved the treatment and management plan for this patient's care in the emergency department, thus performing a substantial portion of the medical decision making. 34-year-old male with a history of alcoholic pancreatitis, discharged a little over 10 days ago presenting with epigastric abdominal pain. Has leukocytosis blood. Count of 24. CT abdomen pelvis was independently interpreted by me, revealing of hypoattenuated area in the pancreas concerning for necrosis. Initiated on Zosyn and admitted to hospital medicine. Jong Gibson MD Critical Care <Jong Gibson MD - Last Filed: 11/13/24 20:58> Critical Care Time Critical Care Time: No
[2024-11-13 17:16] LABS: Basophils # 0.2 K/mm3 (0-0.2); Basophils % 0.7 % (0.1-2.0); Eosinophils # 0.5 K/mm3 (0.0-0.4); Eosinophils % 1.9 % (0.1-12.0); Hematocrit 41.9 % (42.0-52.0); Hemoglobin 13.7 g/dL (14.1-18.0); Lymphocytes # 2.5 K/mm3 (0.7-4.5); Mean Corpuscular HGB Conc 32.7 g/dL (31.8-35.4); Mean Corpuscular Hemoglobin 30.1 pg (27.0-31.2); Mean Corpuscular Volume 92.1 fl (80-94); Mean Platelet Volume 8.6 fl (7.4-10.4); Monocytes % 4.1 % (1.7-9.3); Neutrophils # 20.2 K/mm3 (1.8-7.8); Neutrophils % 82.8 % (37.0-80.0); Platelet Count 786 K/mm3 (142-424); Red Blood Count 4.55 M/mm3 (4.60-6.20); Red Cell Distribution Width 12.3 % (11.5-17.5); White Blood Count 24.4 K/mm3 (4.8-10.8)
[2024-11-13] MEDS: 0.9 % SODIUM CHLORIDE 1000ML 1,000 ML 999 ML IV (17:17)
[2024-11-13] MEDS: ONDANSETRON 4MG/2ML VIAL 4 MG IV (17:17)
[2024-11-13] MEDS: HYDROMORPHONE 2MG/ML SYRINGE 1 MG IV (17:18)
[2024-11-13 17:20] LABS: Appearance,Urine CLEAR (Clear); Bilirubin,Urine Negative (Negative); Blood, Urine TRACE-I (Negative); Color,Urine YELLOW (Yellow); Glucose,Urine (UA) Negative (Negative); Ketones,Urine Negative (Negative); Leukocyte Esterase,Urine Negative (Negative); Nitrate,Urine Negative (Negative); PH,Urine 5.5 (5.0-8.5); Protein,Urine Negative (Negative); Specific Gravity, Urine >= 1.030 (1.005-1.030); Urobilinogen,Urine 0.2 EU/dl (0.2)
[2024-11-13 17:22] LABS: Alanine Aminotransferase 32 U/L (12-78); Albumin Level 4.7 g/dl (3.5-5.0); Albumin/Globulin Ratio 1.2 (1.1-1.8); Alkaline Phosphatase 78 U/L (38-126); Anion Gap 16.3 mEq/L (5-15); Aspartate Amino Transferase 31 U/L (17-59); Bilirubin,Total 0.5 mg/dl (0.2-1.3); Blood Urea Nitrogen 13 mg/dl (9-20); Calcium 10.1 mg/dl (8.4-10.2); Carbon Dioxide 29 mmol/L (22.0-30.0); Chloride 101 mmol/L (98-107); Creatinine Clearance Estimated 125 mL/min (50-200); Estimated Glomerular Filt Rate 111 ml/min (>60); GFR (African American) 134 ML/MIN (>60); Globulin 3.8 g/dL (1.3-3.2); Glucose 110 mg/dl (74-100); Magnesium 2.3 mg/dl (1.6-2.3); Potassium 4.3 mmoL/L (3.5-5.1); Sodium 142 mmol/L (136-145); Total Protein,Serum 8.5 g/dl (6.3-8.2)
[2024-11-13 17:26] LABS: Lipase 603 U/L (23-300)
[2024-11-13 17:30] VITALS: BP 129/83; PULSE 86; RESP 18; O2SAT 100
[2024-11-13 17:36] LABS: Troponin I < 0.01 ng/ml (0.00-0.034)
[2024-11-13 17:37] LABS: Bacteria,Urine Trace /lpf; Squamous Epithelial Cell,Urine Occasional #/hpf (0-5)
[2024-11-13 17:38] LABS: MANUAL DIFFERENTIAL MANUAL DIFFERENTIAL (MANUAL DIFF)
--- NOTE | 2024-11-13 17:39 | PC.NURSE ---
pt is at ct
[2024-11-13] MEDS: SODIUM CHLORIDE 0.9% 10ML SYR (RAD ONLY) 10 ML IV (17:40)
[2024-11-13] MEDS: IOPAMIDOL-370 (76%);100ML BOTTLE 75 ML IV (17:40)
--- NOTE | 2024-11-13 17:42 | PC.NURSE ---
pt returned from rad via wc
[2024-11-13 17:50] LABS: Eosinophils % 1 % (0-3); Lymphocytes % 11 % (10-50); Monocytes % 3 % (2-9); Neutrophils % 85 % (42-76); Platelet Estimate Marked Increase; RBC Morphology Normal; Total Cells Counted 100
[2024-11-13 18:01] LABS: Lactic Acid 0.8 mmol/L (0.7-2.1)
[2024-11-13] MEDS: PIPERACILLIN/TAZO 4.5 GM in 0.9 % SODIUM CHLORIDE 100 ML IV (19:42)
[2024-11-13 19:52] VITALS: BP 112/75; PULSE 79; RESP 16; TEMP 36.8
--- NOTE | 2024-11-13 19:52 | PC.NURSE ---
Report called to Josefina
[2024-11-13 20:00] VITALS: BP 141/81; PULSE 82; RESP 18; TEMP 36.8; O2SAT 99; BMI 21.4
[2024-11-13] MEDS: 0.9 % SODIUM CHLORIDE 1000ML 1,000 ML 75 ML IV (20:13)
--- NOTE | 2024-11-13 20:26 | PC.NURSE ---
Patient arrived to floor via wheelchair from ED at 20:03.
--- NOTE | 2024-11-13 20:54 | PC.NURSE ---
Patient states he tried trazodone prescription that was filled, but it does not work so he has not been taking.
--- NOTE | 2024-11-13 21:01 | P.HP_ITS ---
<Statement entered by Neeraj Irwin MD - 11/17/24 11:10> I personally examined patient and agree with the plan of care outlined by the WASHING MACHINE REPAIRER. History of Present Illness *Admission Date: 11/13/24 *Reason for visit:: Abdominal pain *History of present illness: A 34-year-old male presents to the emergency department (ED) with a chief complaint of left-sided abdominal pain that began 1 hour prior to arrival. The patient reports that the pain started acutely while he was stretching and describes it as sharp, localized to the left side of his abdomen. He denies any preceding trauma or injury. He has a pertinent past medical history of pancreatitis, for which he was hospitalized at this facility for 4 days, discharged one week ago. During that admission, his lipase was markedly elevated at over 11,000 U/L upon presentation and decreased to 2,400 U/L by the time of discharge. He was advised to follow a specific diet and maintain adequate hydration, and he was prescribed pain medication and antiemetics for symptom management. The etiology of his prior pancreatitis remains unclear to the patient; he reports being told it may be related to gallstones or dietary factors. He acknowledges a history of daily alcohol consumption until approximately 3 weeks ago, when he ceased drinking following his pancreatitis diagnosis. On presentation today, the patient is hemodynamically stable, nontoxic- appearing, and afebrile. Laboratory results (drawn on 11/13/24 at 17:05) reveal a significantly elevated white blood cell count (WBC) of 24.4 x 10?/?L (suggesting leukocytosis), elevated lipase at 603 U/L (consistent with ongoing pancreatic inflammation), and a platelet count of 786 x 10?/?L (thrombocytosis). His lactate level is normal at 0.8 mmol/L. Urinalysis shows trace blood and 3-5 WBCs, with no significant signs of infection. A CT scan was performed, with formal radiologic interpretation revealing the following: * Newly developed centrally nonenhancing fluid density within the mid-body of the pancreas, with an additional collection noted in the distal body. Differential considerations include pseudocyst formation versus pancreatic necrosis. Clinical follow-up is recommended, and additional imaging such as a contrast-enhanced MRI is suggested for further evaluation. * An inflammatory process involving the body of the stomach, likely secondary to ongoing pancreatitis, is suggested, with clinical follow-up advised. The differential diagnosis includes recurrent acute pancreatitis with possible complications (pseudocyst or pancreatic necrosis), as well as secondary gastric inflammation. Sepsis remains a consideration given the leukocytosis, though the normal lactate level is reassuring. Initial management includes a crystalloid bolus, analgesics (Dilaudid), antiemetics (Zofran), and empiric antibiotics (IV Zosyn). Upon reassessment, the patient reports some improvement in pain following administration of Dilaudid and Zofran. Workup is ongoing with hematologic labs, the completed CT imaging, and potential additional studies (e.g., MRI) to further clarify the diagnosis and guide management. [facility] Disclaimer: The information contained in this section may have been updated after the patient was seen, as this information can be updated by other users. Medical History Murmur History of palpitations Anxiety Family History Other Family history of cancer Family history of myocardial infarction Family history of stroke Social History Smoking Status: Current every day smoker alcohol intake: former substance use type: marijuana current occupational status: employed Travel in the last 8 weeks: None Have you lived/traveled outside US in past 30 days?: No Contact w/someone who lives/traveled outside US past 30 days?: No Exposure to someone with infectious disease in past 14 days?: No Do you have a fever (greater than 100.4 F or 38 C)?: No Have you tested positive for COVID-19: No Exposed to someone with COVID-19 in past 14 days?: No Do you have a sore throat?: No Do you have a cough?: No Do you have any weakness?: No Are you experiencing any nausea/vomitting?: No Do you have any diarrhea?: No Are you experiencing any unusual bleeding?: No Do you have any muscle aches/pain?: Yes Do you have any abdominal pain?: Yes Are you experiencing loss of taste or smell?: No Other Medical History Have you received the Flu Vaccine for this season: No Have you received the Pneumonia Vaccine: No Review of Systems Review of Systems Review of systems (narrative): 13 point review of system negative except as listed in HPI Meds Home Medications and Allergies New Prescriptions to Start Prescriptions: Allergies Allergy/AdvReac Type Severity Reaction Status Date / Time No Known Allergies Allergy Verified 10/30/24 15:37 Exam Data for Last 24 hours Vital signs and Labs for Last 24 Hours: Temp Pulse Resp BP Pulse Ox O2 Del Method 98.3 F 79 16 112/75 100 Room Air 11/13/24 19:52 11/13/24 19:52 11/13/24 19:52 11/13/24 19:52 11/13/24 17:30 11/13/24 20:53 Laboratory Results - last 24 hr 11/13/24 17:05: WBC 24.4 H*, RBC 4.55 L, Hgb 13.7 L, Hct 41.9 L, MCV 92.1, MCH 30.1, MCHC 32.7, RDW 12.3, Plt Count 786 H, MPV 8.6, Neut % (Auto) 82.8 H, Lymph % (Auto) 10.0, [place] % (Auto) 4.1, Eos % (Auto) 1.9, Baso % (Auto) 0.7, Neut # (Auto) 20.2 H, Lymph # (Auto) 2.5, [place] # (Auto) 1.0, Eos # (Auto) 0.5 H, Baso # (Auto) 0.2, Total Counted 100, Neutrophils % (Manual) 85 H, Lymphocytes % (Manual) 11, Monocytes % (Manual) 3, Eosinophils % (Manual) 1, Platelet Estimate Marked increase, RBC Morphology Normal, Sodium 142, Potassium 4.3, Chloride 101, Carbon Dioxide 29, Anion Gap 16.3 H, BUN 13, Creatinine 0.80, Estimated Creat Clear 125, Estimated GFR 111, Est GFR ( Amer) 134, Glucose 110 H, Calcium 10.1, Magnesium 2.3, Total Bilirubin 0.5, AST 31, ALT 32, Alkaline Phosphatase 78, Troponin I < 0.01, Total Protein 8.5 H D, Albumin 4.7, Globulin 3.8 H, Albumin/Globulin Ratio 1.2, Lipase 603 H, Urine Color Yellow, Urine Appearance Clear, Urine pH 5.5, Ur Specific [place] >= 1.030, Urine Protein Negative, Urine Glucose (UA) Negative, Urine Ketones Negative, Urine Blood Trace-i, Urine Nitrate Negative, Urine Bilirubin Negative, Urine Urobilinogen 0.2, Ur Leukocyte Esterase Negative, Urine RBC None, Urine WBC 3-5, Ur Squamous Epith Cells Occasional, Urine Bacteria Trace 11/13/24 17:46: Lactate 0.8 I & O for Last 24 hours: Intake & Output 11/10/24 11/11/24 11/12/24 11/13/24 23:59 23:59 23:59 23:59 Weight 68.039 kg Constitutional Constitutional: no acute distress *Routine HEENT Exam Head: Present normocephalic Eye: Present EOMI and PERRL ENT: Present mucous membranes moist *Routine Neck Exam Neck: Present supple; Absent lymphadenopathy *Routine Respiratory Exam Respiratory: Present CTA bilaterally *Routine Cardiovascular Exam Cardiovascular: Present RRR *Routine Abdominal Exam Abdominal: Present soft, normoactive bowel sounds and tenderness *Routine Rectal Exam Rectal:: deferred *Routine Genitalia Exam Genitalia:: deferred *Routine Extremities Exam Extremities: Absent cyanosis, clubbing or edema *Routine Skin Exam Skin: Present warm; Absent rash *Routine Neurological Exam Neurological: Present alert and oriented X3 Assessment and Plan *Assessment and plan (1) Pancreatitis: Status: Acute Qualifiers: Acute pancreatitis complication: infected necrosis Chronicity: acute Pancreatitis type: unspecified pancreatitis type Qualified Code(s): K85.92 - Acute pancreatitis with infected necrosis, unspecified Category: Medical Code(s): K85.90 - Acute pancreatitis without necrosis or infection, unspecified (2) Acute pancreatitis: Status: Acute Category: Medical Code(s): K85.90 - Acute pancreatitis without necrosis or infection, unspecified (3) Abdominal pain: Status: Acute Category: Medical Code(s): R10.9 - Unspecified abdominal pain (4) Leukocytosis: Status: Acute Category: Medical Code(s): D72.829 - Elevated white blood cell count, unspecified Plan * Recurrent Acute Pancreatitis: * 34-year-old male with recent pancreatitis (discharged 1 week ago, lipase >11,000 U/L to 2,400 U/L) presents with 1-hour history of sharp left-sided abdominal pain after stretching, lipase now 603 U/L, indicating recurrence; possible gallstones or prior alcohol use (stopped 3 weeks ago). * Administer IV Dilaudid 0.5-1 mg q2-4h PRN for pain, IV Zofran 4 mg q6h PRN for nausea. * Give 1L IV lactated Ringer?s bolus, then 125 mL/hr maintenance fluids; keep NPO. * Repeat CBC and lipase to monitor trends. * Order abdominal ultrasound to evaluate for gallstones as etiology. * Pancreatic Pseudocyst vs. Necrosis: * CT shows new nonenhancing fluid in mid-body and distal pancreas, suggesting pseudocyst or necrosis; no abscess or hemorrhage seen. * Arrange contrast-enhanced MRI within 24-48 hours to clarify per radiology recommendation. * Consult gastroenterology today for management of potential complications. * Monitor for fever, tachycardia, or hypotension indicating progression. * Secondary Gastric Inflammation: * CT indicates stomach body inflammation, likely from adjacent pancreatitis; no perforation noted. * Continue NPO status, IV fluids, and symptom control with Dilaudid/Zofran. * Reassess abdominal exam in 4-6 hours for worsening signs (e.g., increased tenderness). * Leukocytosis: * WBC 24.4 x 10?/?L with neutrophilic predominance, likely inflammatory from pancreatitis; lactate 0.8 mmol/L rules out severe sepsis. * Continue IV Zosyn empirically; reassess need in 24 hours with repeat CBC and clinical status. * Watch for infection signs (e.g., fever, worsening pain). * Thrombocytosis: * Platelets 786 x 10?/?L, likely reactive to inflammation; no bleeding concerns. * No specific intervention; monitor with repeat CBC in 6 in a.m. Admit to the medicine service for ongoing management of recurrent acute pancr eatitis, evaluation of pancreatic complications (pseudocyst vs. necrosis) with GI consultation, and monitoring of leukocytosis and secondary gastric inflammation. Patient requires inpatient workup (MRI, ultrasound) and observation for potential worsening.
[2024-11-14] VITALS: BP 125/71; PULSE 85; RESP 18; TEMP 36.4; O2SAT 99
[2024-11-14] MEDS: PIPERCILLIN/TAZO 3.375 GM in 0.9 % SODIUM CHLORIDE 50 ML IV ×3 (01:57→17:40)
[2024-11-14] MEDS: KETOROLAC 30MG/ML VIAL 15 MG IV ×3 (02:29→17:38)
[2024-11-14 04:00] VITALS: BP 123/63; PULSE 79; RESP 18; TEMP 36.9; O2SAT 98; BMI 21.5
[2024-11-14] MEDS: ONDANSETRON 4MG/2ML VIAL 4 MG IV (04:08)
[2024-11-14] MEDS: HYDROMORPHONE 2MG/ML SYRINGE 0.5 MG IV ×3 (04:09→21:36)
[2024-11-14 08:00] VITALS: BP 117/70; PULSE 71; RESP 16; TEMP 36.6; O2SAT 97
[2024-11-14 08:03] LABS: Basophils # 0.1 K/mm3 (0-0.2); Basophils % 1.1 % (0.1-2.0); Eosinophils # 0.4 K/mm3 (0.0-0.4); Eosinophils % 3.7 % (0.1-12.0); Hematocrit 34.7 % (42.0-52.0); Lymphocytes # 0.9 K/mm3 (0.7-4.5); Lymphocytes % 7.7 % (10-50); Mean Corpuscular HGB Conc 32.3 g/dL (31.8-35.4); Mean Corpuscular Hemoglobin 30.2 pg (27.0-31.2); Mean Corpuscular Volume 93.5 fl (80-94); Mean Platelet Volume 8.9 fl (7.4-10.4); Monocytes % 8.6 % (1.7-9.3); Neutrophils # 8.7 K/mm3 (1.8-7.8); Neutrophils % 78.4 % (37.0-80.0); Platelet Count 549 K/mm3 (142-424); Red Blood Count 3.71 M/mm3 (4.60-6.20); Red Cell Distribution Width 12.3 % (11.5-17.5); White Blood Count 11.1 K/mm3 (4.8-10.8)
[2024-11-14 08:10] LABS: Alanine Aminotransferase 20 U/L (12-78); Albumin Level 3.3 g/dl (3.5-5.0); Albumin/Globulin Ratio 1.2 (1.1-1.8); Alkaline Phosphatase 59 U/L (38-126); Anion Gap 13.3 mEq/L (5-15); Aspartate Amino Transferase 25 U/L (17-59); Bilirubin,Total 0.4 mg/dl (0.2-1.3); Blood Urea Nitrogen 12 mg/dl (9-20); Calcium 8.9 mg/dl (8.4-10.2); Carbon Dioxide 25 mmol/L (22.0-30.0); Chloride 106 mmol/L (98-107); Creatinine Clearance Estimated 119 mL/min (50-200); Estimated Glomerular Filt Rate 111 ml/min (>60); GFR (African American) 134 ML/MIN (>60); Globulin 2.7 g/dL (1.3-3.2); Glucose 86 mg/dl (74-100); Magnesium 2.2 mg/dl (1.6-2.3); Potassium 4.3 mmoL/L (3.5-5.1); Sodium 140 mmol/L (136-145)
[2024-11-14 08:32] LABS: Hemoglobin 11.2 g/dL (14.1-18.0)
[2024-11-14] MEDS: 0.9 % SODIUM CHLORIDE 1000ML 1,000 ML 75 ML IV ×2 (09:19→20:43)
[2024-11-14] MEDS: ENOXAPARIN 40MG/0.4ML SYRINGE 40 MG SUBCUT (09:20)
--- NOTE | 2024-11-14 15:37 | P.PN_ITS ---
Subjective *Date: 11/14/24 *Time: 21:39 Interval history: Patient continues to have moderate epigastric pain. Will proceed with MRCP in the morning. N.p.o. at midnight. GI consulted. Exam Data for Last 24 hours Vital signs and Labs for Last 24 Hours: Temp Pulse Resp BP Pulse Ox O2 Del Method 98 F 71 16 117/70 97 Room Air 11/14/24 08:00 11/14/24 08:00 11/14/24 08:00 11/14/24 08:00 11/14/24 08:00 11/14/24 15:00 Laboratory Results - last 24 hr 11/13/24 17:05: WBC 24.4 H*, RBC 4.55 L, Hgb 13.7 L, Hct 41.9 L, MCV 92.1, MCH 30.1, MCHC 32.7, RDW 12.3, Plt Count 786 H, MPV 8.6, Neut % (Auto) 82.8 H, Lymph % (Auto) 10.0, [place] % (Auto) 4.1, Eos % (Auto) 1.9, Baso % (Auto) 0.7, Neut # (Auto) 20.2 H, Lymph # (Auto) 2.5, [place] # (Auto) 1.0, Eos # (Auto) 0.5 H, Baso # (Auto) 0.2, Total Counted 100, Neutrophils % (Manual) 85 H, Lymphocytes % (Manual) 11, Monocytes % (Manual) 3, Eosinophils % (Manual) 1, Platelet Estimate Marked increase, RBC Morphology Normal, Sodium 142, Potassium 4.3, Chloride 101, Carbon Dioxide 29, Anion Gap 16.3 H, BUN 13, Creatinine 0.80, Estimated Creat Clear 125, Estimated GFR 111, Est GFR ( Amer) 134, Glucose 110 H, Calcium 10.1, Magnesium 2.3, Total Bilirubin 0.5, AST 31, ALT 32, Alkaline Phosphatase 78, Troponin I < 0.01, Total Protein 8.5 H D, Albumin 4.7, Globulin 3.8 H, Albumin/Globulin Ratio 1.2, Lipase 603 H, Urine Color Yellow, Urine Appearance Clear, Urine pH 5.5, Ur Specific [place] >= 1.030, Urine Protein Negative, Urine Glucose (UA) Negative, Urine Ketones Negative, Urine Blood Trace-i, Urine Nitrate Negative, Urine Bilirubin Negative, Urine Urobilinogen 0.2, Ur Leukocyte Esterase Negative, Urine RBC None, Urine WBC 3-5, Ur Squamous Epith Cells Occasional, Urine Bacteria Trace 11/13/24 17:46: Lactate 0.8 11/14/24 07:30: WBC 11.1 H D, RBC 3.71 L, Hgb 11.2 L D, Hct 34.7 L, MCV 93.5, MCH 30.2, MCHC 32.3, RDW 12.3, Plt Count 549 H D, MPV 8.9, Neut % (Auto) 78.4, Lymph % (Auto) 7.7 L, [place] % (Auto) 8.6, Eos % (Auto) 3.7, Baso % (Auto) 1.1, Neut # (Auto) 8.7 H, Lymph # (Auto) 0.9, [place] # (Auto) 1.0, Eos # (Auto) 0.4, Baso # (Auto) 0.1, Sodium 140, Potassium 4.3, Chloride 106, Carbon Dioxide 25, Anion Gap 13.3, BUN 12, Creatinine 0.80, Estimated Creat Clear 119, Estimated GFR 111, Est GFR ( Amer) 134, Glucose 86 D, Calcium 8.9, Phosphorus 4.0, Magnesium 2.2, Total Bilirubin 0.4, AST 25, ALT 20 D, Alkaline Phosphatase 59, Total Protein 6.0 L D, Albumin 3.3 L D, Globulin 2.7, Albumin/Globulin Ratio 1.2 I & O for Last 24 hours: Intake & Output 11/11/24 11/12/24 11/13/24 11/14/24 23:59 23:59 23:59 23:59 Intake Total 1009 / 1009 Output Total 0 / 0 Balance 1009 / 1009 Weight 64.002 kg 64.501 kg Constitutional Constitutional: no acute distress *Routine HEENT Exam Head: Present normocephalic Eye: Present EOMI and PERRL ENT: Present mucous membranes moist *Routine Neck Exam Neck: Present supple; Absent lymphadenopathy *Routine Respiratory Exam Respiratory: Present CTA bilaterally *Routine Cardiovascular Exam Cardiovascular: Present RRR *Routine Abdominal Exam Abdominal: Present soft, normoactive bowel sounds and tenderness *Routine Extremities Exam Extremities: Absent cyanosis, clubbing or edema *Routine Skin Exam Skin: Present warm; Absent rash *Routine Neurological Exam Neurological: Present alert and oriented X3 Assessment and Plan *Assessment and plan (1) Pancreatitis: Status: Acute Qualifiers: Acute pancreatitis complication: infected necrosis Chronicity: acute Pancreatitis type: unspecified pancreatitis type Qualified Code(s): K85.92 - Acute pancreatitis with infected necrosis, unspecified Category: Medical Code(s): K85.90 - Acute pancreatitis without necrosis or infection, unspecified (2) Acute pancreatitis: Status: Acute Category: Medical Code(s): K85.90 - Acute pancreatitis without necrosis or infection, unspecified (3) Abdominal pain: Status: Acute Category: Medical Code(s): R10.9 - Unspecified abdominal pain (4) Leukocytosis: Status: Acute Category: Medical Code(s): D72.829 - Elevated white blood cell count, unspecified Plan Pantera Stack is a 34-year-old male who presented with 1 day of epigastric pain and was admitted for acute pancreatitis with evidence of pancreatic pseudocyst versus necrosis on CT imaging. # Pancreatitis #Pancreatic pseudocyst versus necrosis ? Presented with 1 day onset of sudden epigastric pain after apparently stretching at home. Patient states he has stopped drinking alcohol. ? Lipase 603, but improving from 11,000 since pancreatitis 2 weeks ago. Initial WBC 22. ? CT abdomen/pelvis suggestive of pancreatic pseudocyst versus necrosis. ? WBC improved to 11.1 after IV fluid resuscitation. Zosyn was initially started but discontinued after low suspicion for infection. Leukocytosis likely reactive in the setting of inflammation. ? Follow-up MRCP in the morning. N.p.o. at midnight ? GI consulted, pending further recommendations. Full code DVT prophylaxis: Lovenox 40 mg
[2024-11-14 16:00] VITALS: BP 119/80; PULSE 82; RESP 16; TEMP 36.6; O2SAT 99
[2024-11-14] MEDS: PANTOPRAZOLE 40MG VIAL 40 MG IV (20:42)
[2024-11-15] MEDS: PIPERCILLIN/TAZO 3.375 GM in 0.9 % SODIUM CHLORIDE 50 ML IV (02:43)
[2024-11-15 04:00] VITALS: BP 130/82; PULSE 76; RESP 17; TEMP 36.8; O2SAT 98; BMI 22.2
[2024-11-15] MEDS: KETOROLAC 30MG/ML VIAL 15 MG IV (04:23)
--- NOTE | 2024-11-15 06:18 | PC.NURSE ---
Pt A&OX4 and has tolerated room air. He has complained of abdominal pain multiple times and was medicated per MAR. He denies any N/V. He has ambulated room independently. He has remained NPO since midnight. No complaints at this time, call light within reach.
[2024-11-15 07:00] LABS: Basophils # 0.1 K/mm3 (0-0.2); Eosinophils # 0.5 K/mm3 (0.0-0.4); Eosinophils % 6.3 % (0.1-12.0); Hematocrit 32.4 % (42.0-52.0); Hemoglobin 10.6 g/dL (14.1-18.0); Lymphocytes # 1.9 K/mm3 (0.7-4.5); Mean Corpuscular HGB Conc 32.7 g/dL (31.8-35.4); Mean Corpuscular Hemoglobin 30.3 pg (27.0-31.2); Mean Corpuscular Volume 92.6 fl (80-94); Mean Platelet Volume 9.2 fl (7.4-10.4); Monocytes # 0.8 K/mm3 (0.1-1.0); Monocytes % 10.7 % (1.7-9.3); Neutrophils # 4.5 K/mm3 (1.8-7.8); Neutrophils % 57.7 % (37.0-80.0); Platelet Count 510 K/mm3 (142-424); Red Cell Distribution Width 12.2 % (11.5-17.5); White Blood Count 7.8 K/mm3 (4.8-10.8)
--- NOTE | 2024-11-15 07:12 | EXP.GE.CONS ---
History of Present Illness *Admission Date: 11/13/24 *History of present illness: Mr. Stack is a 34-year-old gentleman who is admitted with recent severe acute pancreatitis with possible developing pseudocyst versus necrosis. The patient developed symptoms the Friday before last and was admitted and discharged on November 02. He was discharged on a low-fat diet and light duty at work. He was taking some ibuprofen. He states that he stretched and developed sharp severe pain that progressively worsened and he returned to the emergency department where he was admitted on 11/13/2024. He had pain on the left abdomen. His initial lipase on admission last time was over 11,000. His lipase was 2400. He was treated primarily for symptomatic improvement with pain medication and antiemetics. At the time of his readmission, his white blood cell count was 24,000. His CAT scan showed a newly developed 3.4 x 2.5 cm nonenhancing fluid attenuating focus noted within the mid body of the pancreas with mesenteric stranding and fluid. There was less overall peripancreatic fluid compared to the prior study. The newly developed nonenhancing fluid density was felt to be pseudocyst versus pancreatic necrosis. The patient was admitted and was placed on Zosyn. His white blood cell count today was 7.8 which is markedly improved. He is going for MRCP today. His liver chemistries have been normal. His lipase this time on admission was 603. Overall, the patient is improving. He stopped drinking alcohol after his initial bout. He reports no family history of pancreatitis. [facility] Disclaimer: The information contained in this section may have been updated after the patient was seen, as this information can be updated by other users. Medical History Murmur History of palpitations Anxiety Family History Other Family history of cancer Family history of myocardial infarction Family history of stroke Social History Smoking Status: Current every day smoker alcohol intake: former substance use type: marijuana current occupational status: employed Travel in the last 8 weeks: None Have you lived/traveled outside US in past 30 days?: No Contact w/someone who lives/traveled outside US past 30 days?: No Exposure to someone with infectious disease in past 14 days?: No Do you have a fever (greater than 100.4 F or 38 C)?: No Have you tested positive for COVID-19: No Exposed to someone with COVID-19 in past 14 days?: No Do you have a sore throat?: No Do you have a cough?: No Do you have any weakness?: No Are you experiencing any nausea/vomitting?: No Do you have any diarrhea?: No Are you experiencing any unusual bleeding?: No Do you have any muscle aches/pain?: Yes Do you have any abdominal pain?: Yes Are you experiencing loss of taste or smell?: No Meds Home Medications and Allergies Home Medications ?Medication ?Instructions ?Recorded ?Confirmed ?Type trazodone 50 mg tablet 50 mg PO HS 11/14/24 11/14/24 History New Prescriptions to Start Prescriptions: Allergies Allergy/AdvReac Type Severity Reaction Status Date / Time No Known Allergies Allergy Verified 10/30/24 15:37 Exam (Inpt) Vital signs and Labs for Last 24 Hours: Temp Pulse Resp BP Pulse Ox O2 Del Method 98.2 F 76 17 130/82 98 Room Air 11/15/24 04:00 11/15/24 04:00 11/15/24 04:00 11/15/24 04:00 11/15/24 04:00 11/15/24 06:48 Laboratory Results - last 24 hr 11/14/24 07:30: WBC 11.1 H D, RBC 3.71 L, Hgb 11.2 L D, Hct 34.7 L, MCV 93.5, MCH 30.2, MCHC 32.3, RDW 12.3, Plt Count 549 H D, MPV 8.9, Neut % (Auto) 78.4, Lymph % (Auto) 7.7 L, [place] % (Auto) 8.6, Eos % (Auto) 3.7, Baso % (Auto) 1.1, Neut # (Auto) 8.7 H, Lymph # (Auto) 0.9, [place] # (Auto) 1.0, Eos # (Auto) 0.4, Baso # (Auto) 0.1, Sodium 140, Potassium 4.3, Chloride 106, Carbon Dioxide 25, Anion Gap 13.3, BUN 12, Creatinine 0.80, Estimated Creat Clear 119, Estimated GFR 111, Est GFR ( Amer) 134, Glucose 86 D, Calcium 8.9, Phosphorus 4.0, Magnesium 2.2, Total Bilirubin 0.4, AST 25, ALT 20 D, Alkaline Phosphatase 59, Total Protein 6.0 L D, Albumin 3.3 L D, Globulin 2.7, Albumin/Globulin Ratio 1.2 11/15/24 06:25: WBC 7.8 D, RBC 3.50 L, Hgb 10.6 L, Hct 32.4 L, MCV 92.6, MCH 30.3, MCHC 32.7, RDW 12.2, Plt Count 510 H, MPV 9.2, Neut % (Auto) 57.7, Lymph % (Auto) 24.0, [place] % (Auto) 10.7 H, Eos % (Auto) 6.3, Baso % (Auto) 1.0, Neut # (Auto) 4.5, Lymph # (Auto) 1.9, [place] # (Auto) 0.8, Eos # (Auto) 0.5 H, Baso # (Auto) 0.1 I & O for Labs for Last 24 Hours: Intake & Output 11/12/24 11/13/24 11/14/24 11/15/24 23:59 23:59 23:59 23:59 Intake Total 2777 / 3327 550 / 550 Output Total 0 / 0 Balance 2777 / 3327 550 / 550 Weight 141 lb 1.6 oz 142 lb 3.2 oz 146 lb 12.8 oz Microbiology Reports for the Last 24 Hours: Microbiology 11/13/24 17:49 Blood Blood Culture - Preliminary NO GROWTH AFTER 24 HOURS 11/13/24 17:46 Blood Blood Culture - Preliminary NO GROWTH AFTER 24 HOURS Comments:: Normoactive bowel sounds, moderately tender in the left side and left upper quadrant, no rebound or guarding, no masses, no hernias Results Labs 11/15/24 06:25 11/14/24 07:30 Labs: Laboratory Results - last 24 hr 11/14/24 07:30: WBC 11.1 H D, RBC 3.71 L, Hgb 11.2 L D, Hct 34.7 L, MCV 93.5, MCH 30.2, MCHC 32.3, RDW 12.3, Plt Count 549 H D, MPV 8.9, Neut % (Auto) 78.4, Lymph % (Auto) 7.7 L, [place] % (Auto) 8.6, Eos % (Auto) 3.7, Baso % (Auto) 1.1, Neut # (Auto) 8.7 H, Lymph # (Auto) 0.9, [place] # (Auto) 1.0, Eos # (Auto) 0.4, Baso # (Auto) 0.1, Sodium 140, Potassium 4.3, Chloride 106, Carbon Dioxide 25, Anion Gap 13.3, BUN 12, Creatinine 0.80, Estimated Creat Clear 119, Estimated GFR 111, Est GFR ( Amer) 134, Glucose 86 D, Calcium 8.9, Phosphorus 4.0, Magnesium 2.2, Total Bilirubin 0.4, AST 25, ALT 20 D, Alkaline Phosphatase 59, Total Protein 6.0 L D, Albumin 3.3 L D, Globulin 2.7, Albumin/Globulin Ratio 1.2 11/15/24 06:25: WBC 7.8 D, RBC 3.50 L, Hgb 10.6 L, Hct 32.4 L, MCV 92.6, MCH 30.3, MCHC 32.7, RDW 12.2, Plt Count 510 H, MPV 9.2, Neut % (Auto) 57.7, Lymph % (Auto) 24.0, [place] % (Auto) 10.7 H, Eos % (Auto) 6.3, Baso % (Auto) 1.0, Neut # (Auto) 4.5, Lymph # (Auto) 1.9, [place] # (Auto) 0.8, Eos # (Auto) 0.5 H, Baso # (Auto) 0.1 Assessment and Plan *Assessment and plan (1) Acute pancreatitis: Status: Acute Category: Medical Code(s): K85.90 - Acute pancreatitis without necrosis or infection, unspecified (2) Acute pancreatic fluid collection: Status: Acute Category: Medical Code(s): K86.89 - Other specified diseases of pancreas (3) Left upper quadrant abdominal pain: Status: Acute Category: Medical Code(s): R10.12 - Left upper quadrant pain Plan 1. Severe acute pancreatitis with evolving fluid collection?nonenhancing (developing pseudocyst versus necrosis). I do feel that he will need serial imaging as this evolves. In the setting of necrosis, he would need to be transferred to a tertiary center (i.e. [facility]) for management with pancreatic team (including interventional GI, interventional radiology and pancreatic surgeon). Presently, I do not feel that that is necessary. We will check MRCP today but there does not appear to be any concern for biliary pancreatitis and I suspect that this is alcohol pancreatitis as the etiology. Presently, we are not looking for ductal variants but most importantly the evolution of this bout of pancreatitis and whether pseudocyst versus necrosis develop. There is no role for antibiotics . Prophylactic antibiotics are not recommended in patients with acute pancreatitis without infection (regardless of whether this is interstitial or necrotizing pancreatitis). Most importantly is nutrition and management of complications. If this is necrosis it is presently sterile necrosis. In terms of etiology, this is likely to be alcohol. His prior calcium levels were normal. He also had normal triglycerides previously on 10/31.
[2024-11-15 07:20] LABS: Albumin Level 3.4 g/dl (3.5-5.0); Chloride 107 mmol/L (98-107); Potassium 4.2 mmoL/L (3.5-5.1); Sodium 138 mmol/L (136-145)
[2024-11-15 07:23] LABS: Alanine Aminotransferase 16 U/L (12-78); Albumin/Globulin Ratio 1.4 (1.1-1.8); Alkaline Phosphatase 66 U/L (38-126); Anion Gap 9.2 mEq/L (5-15); Aspartate Amino Transferase 22 U/L (17-59); Bilirubin,Total 0.3 mg/dl (0.2-1.3); Blood Urea Nitrogen 5 mg/dl (9-20); Carbon Dioxide 26 mmol/L (22.0-30.0); Creatinine Clearance Estimated 140 mL/min (50-200); Estimated Glomerular Filt Rate 129 ml/min (>60); GFR (African American) 156 ML/MIN (>60); Globulin 2.4 g/dL (1.3-3.2); Total Protein,Serum 5.8 g/dl (6.3-8.2)
[2024-11-15 07:24] LABS: Calcium 8.4 mg/dl (8.4-10.2); Glucose 92 mg/dl (74-100)
--- NOTE | 2024-11-15 07:29 | PC.NURSE ---
Student nurse, Néstor Moon will be providing care under my supervision.
[2024-11-15 08:00] VITALS: BP 145/84; PULSE 78; RESP 18; TEMP 36.8; O2SAT 99
[2024-11-15] MEDS: HYDROMORPHONE 2MG/ML SYRINGE 0.5 MG IV ×3 (08:26→20:11)
[2024-11-15] MEDS: ENOXAPARIN 40MG/0.4ML SYRINGE 40 MG SUBCUT (08:58)
[2024-11-15] MEDS: 0.9 % SODIUM CHLORIDE 1000ML 1,000 ML 75 ML IV ×2 (09:00→13:40)
--- NOTE | 2024-11-15 13:28 | MR_ITS ---
FINAL REPORT TECHNIQUE: Multiplanar MR imaging of the abdomen was obtained without contrast. CLINICAL HISTORY: Evaluate CT findings of pseudocyst versus necrosis ABDOMEN PAIN WITH NAUSEA COMPARISON: 11/13/2024, 10/30/2024 FINDINGS: Pancreatic necrosis cannot be readily assessed without the benefit of intravenous contrast. There is a 6 cystic mass in the central pancreas measuring 36 x 30 mm most suspicious of a pseudocyst. There is mild edema surrounding the pancreas consistent with pancreatitis. There is a fluid collection adjacent to the left adrenal gland measuring up to 14 mm, likely a pseudocyst. Fluid is also seen along the posterior wall of the stomach and the lesser sac which may represent nonloculated fluid or pseudocyst. There is no biliary ductal dilatation or choledocholithiasis. Remaining solid abdominal organs and gallbladder are unremarkable. IMPRESSION: Fluid collections as above most suspicious of pseudocyst. No evidence of biliary ductal dilatation or choledocholithiasis. Reviewed, Interpreted and Dictated by Telly Mensah MD Transcribed by Maryan Dukes Authenticated and . [facility]
[2024-11-15] MEDS: LORazepam 2MG/ML VIAL 1 MG IV (14:01)
--- NOTE | 2024-11-15 17:27 | PC.NURSE ---
Pt is in good spirits this evening. NO complaints at this time. He has tolerated his evening meal. Pt stated that medication for his anxiety helped him during procedure today. Call light within reach.
[2024-11-15] MEDS: PANTOPRAZOLE 40MG VIAL 40 MG IV (20:11)
[2024-11-15] MEDS: SODIUM CHLORIDE 0.9% 10ML VIAL 10 ML IV (20:11)
--- NOTE | 2024-11-15 20:11 | EXP.PN ---
Subjective *Date: 11/15/24 *Time: 22:57 Interval history: Patient feels about the same as yesterday, mild to moderate epigastric abdominal pain but tolerating low-fat diet. Exam Data for Last 24 hours Vital signs and Labs for Last 24 Hours: Temp Pulse Resp BP Pulse Ox O2 Del Method 98.2 F 78 18 145/84 H 99 Room Air 11/15/24 08:00 11/15/24 08:00 11/15/24 08:00 11/15/24 08:00 11/15/24 08:00 11/15/24 18:38 Laboratory Results - last 24 hr 11/15/24 06:25: WBC 7.8 D, RBC 3.50 L, Hgb 10.6 L, Hct 32.4 L, MCV 92.6, MCH 30.3, MCHC 32.7, RDW 12.2, Plt Count 510 H, MPV 9.2, Neut % (Auto) 57.7, Lymph % (Auto) 24.0, Carver % (Auto) 10.7 H, Eos % (Auto) 6.3, Baso % (Auto) 1.0, Neut # (Auto) 4.5, Lymph # (Auto) 1.9, Carver # (Auto) 0.8, Eos # (Auto) 0.5 H, Baso # (Auto) 0.1, Sodium 138, Potassium 4.2, Chloride 107, Carbon Dioxide 26, Anion Gap 9.2, BUN 5 L D, Creatinine 0.70, Estimated Creat Clear 140, Estimated GFR 129, Est GFR ( Amer) 156, Glucose 92, Calcium 8.4, Magnesium 2.0, Total Bilirubin 0.3, AST 22, ALT 16, Alkaline Phosphatase 66, Total Protein 5.8 L, Albumin 3.4 L, Globulin 2.4, Albumin/Globulin Ratio 1.4 I & O for Last 24 hours: Intake & Output 11/12/24 11/13/24 11/14/24 11/15/24 23:59 23:59 23:59 23:59 Intake Total 3119 / 6024 2230 Output Total 0 / 0 0 / 0 Balance 2776 / 3326 Weight 64.002 kg 64.501 kg 66.587 kg Microbiology Reports for the Last 24 Hours: Microbiology 11/13/24 17:49 Blood Blood Culture - Preliminary NO GROWTH AFTER 48 HOURS 11/13/24 17:46 Blood Blood Culture - Preliminary NO GROWTH AFTER 48 HOURS Constitutional Constitutional: no acute distress *Routine HEENT Exam Head: Present normocephalic Eye: Present EOMI and PERRL ENT: Present mucous membranes moist *Routine Neck Exam Neck: Present supple; Absent lymphadenopathy *Routine Respiratory Exam Respiratory: Present CTA bilaterally *Routine Cardiovascular Exam Cardiovascular: Present RRR *Routine Abdominal Exam Abdominal: Present soft, normoactive bowel sounds and tenderness *Routine Extremities Exam Extremities: Absent cyanosis, clubbing or edema *Routine Skin Exam Skin: Present warm; Absent rash *Routine Neurological Exam Neurological: Present alert and oriented X3 Assessment and Plan *Assessment and plan (1) Pancreatitis: Status: Acute Qualifiers: Acute pancreatitis complication: infected necrosis Chronicity: acute Pancreatitis type: unspecified pancreatitis type Qualified Code(s): K85.92 - Acute pancreatitis with infected necrosis, unspecified Category: Medical Code(s): K85.90 - Acute pancreatitis without necrosis or infection, unspecified (2) Acute pancreatitis: Status: Acute Category: Medical Code(s): K85.90 - Acute pancreatitis without necrosis or infection, unspecified (3) Abdominal pain: Status: Acute Category: Medical Code(s): R10.9 - Unspecified abdominal pain (4) Leukocytosis: Status: Acute Category: Medical Code(s): D72.829 - Elevated white blood cell count, unspecified Plan Pantera Stack is a 34-year-old male who presented with 1 day of epigastric pain and was admitted for acute pancreatitis with evidence of pancreatic pseudocyst versus necrosis on CT imaging. #Acute with pseudocyst pancreatitis #Acute on chronic normocytic anemia ? Presented with 1 day onset of sudden epigastric pain after apparently stretching at home. Patient states he has stopped drinking alcohol. ? Lipase 603, but improving from 11,000 since pancreatitis 2 weeks ago. Initial WBC 22, since normalized. ? LFTs, calcium, triglycerides normal. ? Patient feels about the same as yesterday, mild to moderate epigastric abdominal pain but tolerating low-fat diet. ? MRCP 11/15/2024 suggestive of 3.6 x 3 cm pancreatic pseudocyst. Emmett's criteria 2 at this time (hemoglobin, calcium), 1% chance of mortality. ? Hemoglobin downtrending from 15.6 to 10.6 since 10/30/2024, though likely partially dilution. ? Discussed with GI, recommends continue to monitor here especially given no pancreatic necrosis. However, I would highly consider transfer to tertiary facility if hemoglobin continues to downtrend due to risk of hemorrhagic pseudocyst. ? Follow-up [facility] to further evaluate acute on chronic anemia. Full code DVT prophylaxis: Hold off on anticoagulation for possible hemorrhagic pseudocyst. Patient is ambulatory.
[2024-11-16] VITALS: BP 147/84; RESP 17; TEMP 36.8; O2SAT 97
[2024-11-16] MEDS: 0.9 % SODIUM CHLORIDE 1000ML 1,000 ML 75 ML IV (01:01)
[2024-11-16] MEDS: HYDROMORPHONE 2MG/ML SYRINGE 0.5 MG IV ×2 (01:01→04:55)
[2024-11-16 04:00] VITALS: BP 142/83; PULSE 74; RESP 16; TEMP 36.5; O2SAT 97; BMI 49.1
[2024-11-16 06:41] LABS: Basophils # 0.1 K/mm3 (0-0.2); Basophils % 1.6 % (0.1-2.0); Eosinophils # 0.4 K/mm3 (0.0-0.4); Eosinophils % 6.2 % (0.1-12.0); Hematocrit 34.8 % (42.0-52.0); Hemoglobin 11.3 g/dL (14.1-18.0); Lymphocytes # 2.3 K/mm3 (0.7-4.5); Lymphocytes % 33.4 % (10-50); Mean Corpuscular HGB Conc 32.5 g/dL (31.8-35.4); Mean Corpuscular Volume 92.3 fl (80-94); Mean Platelet Volume 9.1 fl (7.4-10.4); Monocytes # 0.7 K/mm3 (0.1-1.0); Monocytes % 9.9 % (1.7-9.3); Neutrophils # 3.4 K/mm3 (1.8-7.8); Neutrophils % 48.9 % (37.0-80.0); Platelet Count 526 K/mm3 (142-424); Red Blood Count 3.77 M/mm3 (4.60-6.20); Red Cell Distribution Width 12.1 % (11.5-17.5); White Blood Count 6.9 K/mm3 (4.8-10.8)
[2024-11-16 06:47] LABS: Albumin Level 4.1 g/dl (3.5-5.0); Chloride 105 mmol/L (98-107); Potassium 4.2 mmoL/L (3.5-5.1); Sodium 142 mmol/L (136-145)
[2024-11-16 06:50] LABS: Alanine Aminotransferase 20 U/L (12-78); Albumin/Globulin Ratio 1.6 (1.1-1.8); Alkaline Phosphatase 68 U/L (38-126); Anion Gap 11.2 mEq/L (5-15); Aspartate Amino Transferase 27 U/L (17-59); Bilirubin,Total 0.3 mg/dl (0.2-1.3); Blood Urea Nitrogen 4 mg/dl (9-20); Calcium 9.1 mg/dl (8.4-10.2); Carbon Dioxide 30 mmol/L (22.0-30.0); Creatinine Clearance Estimated 144 mL/min (50-200); Estimated Glomerular Filt Rate 129 ml/min (>60); GFR (African American) 156 ML/MIN (>60); Globulin 2.5 g/dL (1.3-3.2); Glucose 116 mg/dl (74-100); Total Protein,Serum 6.6 g/dl (6.3-8.2)
--- NOTE | 2024-11-16 06:54 | PC.NURSE ---
Pt has c/o moderate to severe pain in abdomen and lower back, Pt was treated per Oct.
[2024-11-16 07:43] VITALS: BP 153/90; PULSE 92; RESP 16; TEMP 36.6; O2SAT 97
[2024-11-16 07:44] LABS: Magnesium 1.8 mg/dl (1.6-2.3)
--- NOTE | 2024-11-16 08:08 | P.PN_ITS ---
Subjective *Date: 11/16/24 *Time: 08:08 Interval history: Patient eating breakfast this morning. Clearly has less abdominal pain but still has some pain requiring opiates. Overall, clinically improved. Exam Data for Last 24 hours Vital signs and Labs for Last 24 Hours: Temp Pulse Resp BP Pulse Ox O2 Del Method 97.9 F 92 H 16 153/90 H 97 Room Air 11/16/24 07:43 11/16/24 07:43 11/16/24 07:43 11/16/24 07:43 11/16/24 07:43 11/16/24 07:43 Laboratory Results - last 24 hr 11/15/24 06:25: Magnesium 2.0 11/16/24 06:12: WBC 6.9, RBC 3.77 L, Hgb 11.3 L, Hct 34.8 L, MCV 92.3, MCH 30.0, MCHC 32.5, RDW 12.1, Plt Count 526 H, MPV 9.1, Neut % (Auto) 48.9, Lymph % (Auto) 33.4, Brewster % (Auto) 9.9 H, Eos % (Auto) 6.2, Baso % (Auto) 1.6, Neut # (Auto) 3.4, Lymph # (Auto) 2.3, Brewster # (Auto) 0.7, Eos # (Auto) 0.4, Baso # (Auto) 0.1, Sodium 142, Potassium 4.2, Chloride 105, Carbon Dioxide 30, Anion Gap 11.2, BUN 4 L, Creatinine 0.70, Estimated Creat Clear 144, Estimated GFR 129, Est GFR ( Amer) 156, Glucose 116 H D, Calcium 9.1, Magnesium 1.8, Total Bilirubin 0.3, AST 27, ALT 20, Alkaline Phosphatase 68, Total Protein 6.6, Albumin 4.1 D, Globulin 2.5, Albumin/Globulin Ratio 1.6 I & O for Last 24 hours: Intake & Output 11/13/24 11/14/24 11/15/24 11/16/24 23:59 23:59 23:59 23:59 Intake Total 2777 / 3327 2231 / 2846 615 / 615 Output Total 0 / 0 0 / 0 Balance 2777 / 3327 2231 / 2846 615 / 615 Weight 141 lb 1.6 oz 142 lb 3.2 oz 146 lb 12.8 oz 324 lb 1.272 oz Microbiology Reports for the Last 24 Hours: Microbiology 11/13/24 17:49 Blood Blood Culture - Preliminary NO GROWTH AFTER 48 HOURS 11/13/24 17:46 Blood Blood Culture - Preliminary NO GROWTH AFTER 48 HOURS *Routine Abdominal Exam Abdominal: Present soft, normoactive bowel sounds and tenderness Assessment and Plan *Assessment and plan (1) Pancreatic pseudocyst: Status: Acute Category: Medical Code(s): K86.3 - Pseudocyst of pancreas (2) Left upper quadrant abdominal pain: Status: Acute Category: Medical Code(s): R10.12 - Left upper quadrant pain (3) Acute pancreatic fluid collection: Status: Acute Category: Medical Code(s): K86.89 - Other specified diseases of pancreas (4) Acute pancreatitis: Status: Acute Category: Medical Code(s): K85.90 - Acute pancreatitis without necrosis or infection, unspecified Plan 1. Pancreatic pseudocyst on MRCP The patient's labs including white blood cell count are markedly improved. The patient does have normal liver chemistries. He does have the 3.6 x 3.0 cm pseudocyst in the central body of the pancreas with fluid collections indicative of his prior moderate to severe acute pancreatitis. There does not appear to be any necrosis. A pancreatic pseudocyst is a maturing collection of pancreatic juice encased by reactive granulation scar tissue occurring in and around the pancreas. This is the consequence of the inflammation created by pancreatitis and pancreatic ductal leakage. Pseudocyst can be large or small, single or multiple. They can be located within or outside the pancreas. Most pseudocysts communicate with the pancreatic ductal system and thus containing high concentration of pancreatic enzymes. Pseudocysts can be seen following an attack of acute pancreatitis and also in persons with chronic pancreatitis. They occur in 10% of persons have acute pancreatitis. They occur in chronic pancreatitis due to progressive pancreatic ductal obstruction. 40% of patients with pseudocysts resolve without any intervention. However, when these pseudocysts don't resolve they can develop spontaneous infection. Sometimes, adjacent blood vessels can develop and cause a pseudoaneurysm that can rupture with significant bleeding. These pseudoaneurysms occur in up to 10% of patients with pancreatic pseudocyst. As long as the patient continues to tolerate oral intake and under pain control, he can go home and I would follow-up with repeat imaging/pancreatic protocol CT scan in 6 weeks.
[2024-11-16] MEDS: MAGNESIUM SULFATE IN WATER 2 GM/50 ML PIGGYBACK IV (08:28)
[2024-11-16] MEDS: OXYCODONE 5MG W/APAP 325MG TABLET 1 EACH PO (09:36)
--- NOTE | 2024-11-16 10:47 | P.DS_ITS ---
General Admission date:: 11/13/24 Discharge date: 11/16/24 HPI HPI HPI: Mr. Stack is a 34-year-old gentleman who is admitted with recent severe acute pancreatitis with possible developing pseudocyst versus necrosis. The patient developed symptoms the Friday before last and was admitted and discharged on November 02. He was discharged on a low-fat diet and light duty at work. He was taking some ibuprofen. He states that he stretched and developed sharp severe pain that progressively worsened and he returned to the emergency department where he was admitted on 11/13/2024. He had pain on the left abdomen. His initial lipase on admission last time was over 11,000. His lipase was 2400. He was treated primarily for symptomatic improvement with pain medication and antiemetics. At the time of his readmission, his white blood cell count was 24,000. His CAT scan showed a newly developed 3.4 x 2.5 cm nonenhancing fluid attenuating focus noted within the mid body of the pancreas with mesenteric stranding and fluid. There was less overall peripancreatic fluid compared to the prior study. The newly developed nonenhancing fluid density was felt to be pseudocyst versus pancreatic necrosis. The patient was admitted and was placed on Zosyn. His white blood cell count today was 7.8 which is markedly improved. He is going for MRCP today. His liver chemistries have been normal. His lipase this time on admission was 603. Overall, the patient is improving. He stopped drinking alcohol after his initial bout. He reports no family history of pancreatitis. Hospital Course Hospital Course Hospital Course: Pantera Stack is a 34-year-old male who presented with 1 day of epigastric pa in and was admitted for acute pancreatitis with evidence of pancreatic pseudocyst versus necrosis on CT imaging. Patient remained stable. GI was consulted. Will need follow-up as an outpatient. Tolerated advancement in diet. Stable to discharge home. Problems addressed as follows: #Acute with pseudocyst pancreatitis #Acute on chronic normocytic anemia ? Presented with 1 day onset of sudden epigastric pain after apparently stretching at home. Patient states he has stopped drinking alcohol. Lipase 603, but improving from 11,000 since pancreatitis 2 weeks ago. Initial WBC 22, since normalized. LFTs, calcium, triglycerides normal. Patient feels about the same as yesterday, mild to moderate epigastric abdominal pain but tolerating low -fat diet. MRCP 11/15/2024 suggestive of 3.6 x 3 cm pancreatic pseudocyst. Vinton's criteria 2 at this time (hemoglobin, calcium), 1% chance of mortality. Hemoglobin downtrending from 15.6 to 10.6 since 10/30/2024, though likely partially dilution. Improved to 11.7 on day of discharge. GI was consulted. Recommended continuing to monitor given no pancreatic necrosis. As his hemoglobin is stable and he is tolerating p.o. intake, will discharge home with close follow-up with GI as an outpatient. Low concern for hemorrhagic pseudocyst. Exam Data for Last 24 hours Vital signs and Labs for Last 24 Hours: Temp Pulse Resp BP Pulse Ox O2 Del Method 97.9 F 92 H 16 153/90 H 97 Room Air 11/16/24 07:43 11/16/24 07:43 11/16/24 07:43 11/16/24 07:43 11/16/24 07:43 11/16/24 08:59 Laboratory Results - last 24 hr 11/15/24 06:25: Magnesium 2.0 11/16/24 06:12: WBC 6.9, RBC 3.77 L, Hgb 11.3 L, Hct 34.8 L, MCV 92.3, MCH 30.0, MCHC 32.5, RDW 12.1, Plt Count 526 H, MPV 9.1, Neut % (Auto) 48.9, Lymph % (Auto) 33.4, Bullitt % (Auto) 9.9 H, Eos % (Auto) 6.2, Baso % (Auto) 1.6, Neut # (Auto) 3.4, Lymph # (Auto) 2.3, Bullitt # (Auto) 0.7, Eos # (Auto) 0.4, Baso # (Auto) 0.1, Sodium 142, Potassium 4.2, Chloride 105, Carbon Dioxide 30, Anion Gap 11.2, BUN 4 L, Creatinine 0.70, Estimated Creat Clear 144, Estimated GFR 129, Est GFR ( Amer) 156, Glucose 116 H D, Calcium 9.1, Magnesium 1.8, Total Bilirubin 0.3, AST 27, ALT 20, Alkaline Phosphatase 68, Total Protein 6.6, Albumin 4.1 D, Globulin 2.5, Albumin/Globulin Ratio 1.6 I & O for Last 24 hours: Intake & Output 11/13/24 11/14/24 11/15/24 11/16/24 23:59 23:59 23:59 23:59 Intake Total 2777 / 3327 2231 / 2846 775 / 775 Output Total 0 / 0 0 / 0 Balance 2777 / 3327 2231 / 2846 775 / 775 Weight 64.002 kg 64.501 kg 66.587 kg 147 kg Microbiology Reports for the Last 24 Hours: Microbiology 11/14/24 14:46 Urine,Clean Catch Urine Culture - Final No growth. 11/13/24 17:49 Blood Blood Culture - Preliminary NO GROWTH AFTER 48 HOURS 11/13/24 17:46 Blood Blood Culture - Preliminary NO GROWTH AFTER 48 HOURS Constitutional Constitutional: no acute distress, average body habitus and cooperative *Routine HEENT Exam Head: Present normocephalic Eye: Present EOMI and PERRL ENT: Present mucous membranes moist *Routine Neck Exam Neck: Present supple; Absent lymphadenopathy *Routine Respiratory Exam Respiratory: Present CTA bilaterally; Absent rhonchi, wheezes or crackles *Routine Cardiovascular Exam Cardiovascular: Present RRR *Routine Abdominal Exam Abdominal: Present soft, normoactive bowel sounds and tenderness (LUQ) *Routine Rectal Exam Patient deferred: visual exam *Routine Exam Patient deferred: penile exam *Routine Extremities Exam Extremities: Absent cyanosis, clubbing or edema *Routine Skin Exam Skin: Present warm; Absent rash *Routine Neurological Exam Neurological: Present alert, oriented X3 and moving all extremities; Absent altered mental status Results Data Completed and Pending Labs on day of discharge: Labs from last 24 hours 11/16/24 11/15/24 06:12 06:25 WBC 6.9 RBC 3.77 L Hgb 11.3 L Hct 34.8 L MCV 92.3 MCH 30.0 MCHC 32.5 RDW 12.1 Plt Count 526 H MPV 9.1 Neut % (Auto) 48.9 Lymph % (Auto) 33.4 Bullitt % (Auto) 9.9 H Eos % (Auto) 6.2 Baso % (Auto) 1.6 Neut # (Auto) 3.4 Lymph # (Auto) 2.3 Bullitt # (Auto) 0.7 Eos # (Auto) 0.4 Baso # (Auto) 0.1 Sodium 142 Potassium 4.2 Chloride 105 Carbon Dioxide 30 Anion Gap 11.2 BUN 4 L Creatinine 0.70 Estimated Creat Clear 144 Estimated GFR 129 Est GFR ( Amer) 156 Glucose 116 H D Calcium 9.1 Magnesium 1.8 2.0 Total Bilirubin 0.3 AST 27 ALT 20 Alkaline Phosphatase 68 Total Protein 6.6 Albumin 4.1 D Globulin 2.5 Albumin/Globulin Ratio 1.6 Preliminary micro results at discharge 11/13/24 17:49 Blood Culture - Preliminary Blood NO GROWTH AFTER 48 HOURS 11/13/24 17:46 Blood Culture - Preliminary Blood NO GROWTH AFTER 48 HOURS DS: Diagnosis Discharge Diagnosis (1) Pancreatic pseudocyst: Status: Acute Code(s): K86.3 - Pseudocyst of pancreas (2) Left upper quadrant abdominal pain: Status: Acute Code(s): R10.12 - Left upper quadrant pain (3) Acute pancreatic fluid collection: Status: Acute Code(s): K86.89 - Other specified diseases of pancreas (4) Acute pancreatitis: Status: Acute Code(s): K85.90 - Acute pancreatitis without necrosis or infection, unspecified Meds Home Medications and Allergies Home Medications ?Medication ?Instructions ?Recorded ?Confirmed ?Type trazodone 50 mg tablet 50 mg PO HS 11/14/24 11/14/24 History acetaminophen 325 mg tablet 650 mg (2 x 325 mg) PO Q4HP PRN 11/16/24 Rx Fever Or Mild Pain (1-3) #0 tabs omeprazole 40 mg capsule,delayed 40 mg PO DAILY #30 caps 11/16/24 Rx release oxycodone-acetaminophen 5 mg-325 1 tab PO Q6HP PRN Moderate To 11/16/24 Rx mg tablet Severe Pain (4-10) 3 days #11 tabs New Prescriptions to Start Prescriptions: omeRoyal Willcodone-acetaminophen Royal Echols Allergies Allergy/AdvReac Type Severity Reaction Status Date / Time No Known Allergies Allergy Verified 10/30/24 15:37 Discharge Plan Disposition Patient Disposition: Home, Self-Care Condition: Fair Discharge Order Discharge Orders: Discharge Order (Routine); Ordered 11/16/24 Ordered By: Royal Echols Follow up Plan Follow up with: Jeff Warren II, MD [Staff Physician] - 01/13/25 3:00 pm Jarad Ha MD [Referring] - 11/19/24 9:00 am (with Pia in [place] ) Prescriptions/Medication Reconciliation: New acetaminophen 325 mg Tablet 650 mg PO Q4HP PRN (Reason: Fever Or Mild Pain (1-3)) Qty: 0 0RF oxycodone-acetaminophen 5-325 mg Tablet 1 tab PO Q6HP PRN (Reason: Moderate To Severe Pain (4-10)) 3 Days Qty: 11 0RF omeprazole 40 mg capsule,delayed release(DR/EC) 40 mg PO DAILY Qty: 30 0RF Continued trazodone 50 mg tablet 50 mg PO HS Patient Comments: TAKE 1 TABLET BY MOUTH NIGHTLY FOR INSOMNIA Problem Reconciliation Problems Reviewed?: Yes Patient Discharge Instructions ACTIVITY: Continue current activity DIET: continue same diet Patient Instructions: DI for Pancreatitis, DI for Abdominal Pain-Adult Print Language: Peruvian Providers Primary Care Provider: Provider,Referral Admit Provider: Neeraj Irwin Attending Provider: Neeraj Irwin
--- NOTE | 2024-11-17 10:44 | SW/DCPLANNER ---
Spoke with patient on the phone. Patient stated that he is doing well and that he was at his DR appointment. Patient stated that he is aware of his upcoming appointments. Patient stated that he was able to chicken picker his new medicine from clinic pharmacy. Patient stated that he has no concerns or questions at this time. Malcolm Bueno
== END 2024-11-16 12:23 | disposition home or self-care (01) ==
LOC: ER 17:10 → 2ND 19:51
PROVIDERS: Internal Medicine Adolescent Medicine; Nurse Practitioner; Nurse Practitioner Family; Admitting Provider Student in an Organized Health Care Education/Training Program; Emergency Provider Student in an Organized Health Care Education/Training Program; Visit Provider Student in an Organized Health Care Education/Training Program
DX: K86.3 Pseudocyst of pancreas (principal); K85.90 Acute pancreatitis without necrosis or infection, unspecified; Z82.3 Family history of stroke; Z80.9 Family history of malignant neoplasm, unspecified; F10.21 Alcohol dependence, in remission; F17.210 Nicotine dependence, cigarettes, uncomplicated; F41.9 Anxiety disorder, unspecified; G47.00 Insomnia, unspecified; D75.839 Thrombocytosis, unspecified; Z82.49 Family history of ischemic heart disease and other diseases of the circulatory system; D72.829 Elevated white blood cell count, unspecified; D64.9 Anemia, unspecified; R10.13 Epigastric pain; F12.90 Cannabis use, unspecified, uncomplicated
CPT/HCPCS: 36415; 74177; 74181; 76376; 80053; 81001; 83605; 83690; 83735; 84100; 84484; 85007; 85025; 87040; 87086; 93005; 99285; J1171; J1650; J1885; J2060; J2405; J2543; J3475; J7030; Q9967